=== PATIENT | female | born 1985 | race American Indian/Alaskan Native ===

== ENCOUNTER 2016-05-12 19:52 | Emergency (ER) | payer SELFPAY ==
[2016-05-12] MEDS ORDERED: TYLENOL PO ONE (21:24)
--- NOTE | 2016-05-12 21:44 | Emergency Department Report ---
HPI - General Chief Complaint: Extremity Problem,Nontraumatic Time Seen by Provider: 05/12/16 21:24 - HPI HPI: Patient is a 31-year-old female who presents to ED complaining of left hip pain and chronic 1 week. Patient states pain began a week ago and got worse yesterday. Patient states pain is sharp and sometimes radiating down her thigh. Patient states pain is 6/10 intensity. Patient states she took ibuprofen at 6:00 today. Patient denies trauma or fall to the hip. Patient and made small nausea past 2 weeks. Patient states last menstrual period was Patient denies fever/chills/abdominal pain/pelvic pain/dysuria/vaginal bleeding/ vaginal discharge. ED Past Medical Hx - Past Medical History Previous Medical History?: Yes Additional medical history: Ulcers - Surgical History Past Surgical History?: Yes Additional Surgical History: Left hand - Social History Smoking Status: Light Tobacco Smoker Substance Use Type: Alcohol - Medications Home Medications: Home Medications Medication Instructions Recorded Confirmed Last Taken Type Acetaminophen [Acetaminophen TAB] 500 mg PO Q6HR #30 tablet 05/12/16 Unknown Rx Pnv Cmb#21/Iron/Folic Acid 1 each PO DAILY #30 tablet 05/12/16 Unknown Rx [ Complete Caplet] ED Review of Systems ROS: Stated complaint: LT LEG PAIN Other details as noted in HPI Constitutional: denies: chills, fever Eyes: denies: eye pain, eye discharge, vision change ENT: denies: ear pain, throat pain Respiratory: denies: cough, shortness of breath, SOB with exertion, wheezing Cardiovascular: denies: chest pain, palpitations Endocrine: no symptoms reported Gastrointestinal: nausea. denies: abdominal pain, vomiting, diarrhea Genitourinary: denies: urgency, dysuria, discharge Musculoskeletal: arthralgia. denies: back pain, joint swelling Skin: denies: rash, lesions Neurological: denies: headache, weakness, numbness, paresthesias, confusion, abnormal gait Psychiatric: denies: anxiety, depression Hematological/Lymphatic: denies: easy bleeding, easy bruising Physical Exam - Physical Exam Vital Signs: Vital Signs 05/12/16 20:01 Temperature 99.1 F Pulse Rate 81 Respiratory 18 Rate Blood Pressure 115/74 O2 Sat by Pulse 100 Oximetry General: Patient is alert and oriented 3. No acute distress. Vital signs are stable Physical Exam: GENERAL: Alert and oriented x3, no apparent distress, Normal Gait, atraumatic. HEAD: Head is normocephalic and a-traumatic. EYES: Extra ocular muscles are intact. Pupils are equal, round, and reactive to light and accommodation. MOUTH:Mouth is well hydrated and without lesions. Tonsils nonerythematous or swollen, Uvula midline, Tongue not elevated. Mucous membranes are moist. Posterior pharynx clear, no exudate or lesions. Patent airways. NECK: Supple. Non edematous, No carotid bruits. No lymphadenopathy or thyromegaly. LUNGS: Symetrical with respiration, No wheezing, no rales or crackles, CTAB. HEART: S1, S2 present, regular rate and rhythm without murmur, no rubs, no gallops. ABDOMEN: No organomegaly was noted,Positive bowel sounds, soft, and non- distended. . Nontender to palpation on all Quadrants, NO CVA tenderness. EXTREMITIES/MUSCULOSKELETAL: No cyanosis, clubbing, rash, lesions or edema. Full ROM bilaterally. UE/LE Pulses 2+ bilaterally. LE and UE 5+ strength bilaterally. SLR positive on left leg . NEUROLOGIC: No focal Deficit, Cranial nerves II through XII are grossly intact. No loss of sensation, No facial droop, Negative rhomberg. PSYCHIATRIC: Mood is congruent with affect, denies suicidal or homicidal ideations. SKIN: Warm and dry, No lesions, No ulceration or induration present. ED Course Vital Signs 05/12/16 20:01 Temperature 99.1 F Pulse Rate 81 Respiratory 18 Rate Blood Pressure 115/74 O2 Sat by Pulse 100 Oximetry ED Medical Decision Making - Medical Decision Making Patient presents with left lumbar radiculopathy. Incidental positive test. Beta Quant Levels drawn: Discussed the patient and apply heat pad to the hip and take Tylenol every 6 hours for the pain. Discussed positive test with patient discussed not taken ibuprofen for pain. Discussed taking only Tylenol prevents S prescribed. daily vitamins as prescribed. Discussed follow-up with Dr. Doyle of [facility] FINANCIAL REPORTING SPECIALIST she states this is her OB doctor. Discussed follow-up with her neurologist for radiculopathic pain Critical care attestation.: If time is entered above; I have spent that time in minutes in the direct care of this critically ill patient, excluding procedure time. ED Disposition Clinical Impression: Lumbar pain with radiation down left leg, Incidental Disposition: DISCHARGED TO HOME OR SELFCARE Is pt being admited?: No Does the pt Need Aspirin: No Condition: Stable Instructions: Arthralgia (ED), Lumbar Radiculopathy (ED), (ED) Prescriptions: Acetaminophen [Acetaminophen TAB] 500 mg PO Q6HR #30 tablet Pnv Cmb#21/Iron/Folic Acid [ Complete Caplet] 1 each PO DAILY #30 tablet Referrals: FABIAN SANTAMARIA MD [Staff Physician] - 3-5 Days FRANCIA CRUZ MD [Staff Physician] - 3-5 Days JASKARAN RAJAN MD [Staff Physician] - 3-5 Days IMNA TORO MD [Staff Physician] - 3-5 Days REDD DOYLE MD [Primary Care Provider] - 3-5 Days Forms: Work/School Release Form(ED) Time of Disposition: 21:59
[2016-05-12 22:19] VITALS: BP 122/80
== END 2016-05-12 22:20 | disposition home or self-care (01) ==
LOC: ED 19:52
DX: M54.5 Low back pain (principal); F17.200 Nicotine dependence, unspecified, uncomplicated; Z33.1 Pregnant state, incidental
CPT/HCPCS: 36415; 81025; 84702; 99283

== ENCOUNTER 2016-08-10 03:00 | Emergency (ER) | payer MEDICAID ==
[2016-08-10] MEDS ORDERED: ZOFRAN ONE (03:16)
[2016-08-10] MEDS ORDERED: ZOFRAN IV ONE (03:25)
[2016-08-10 03:36] VITALS: BP 124/67
[2016-08-10 03:42] LABS: Basophils % (Auto) 0.3 % (0.0-1.8); Hematocrit 33.8 % (30.3-42.9); Hemoglobin 11.5 gm/dl (10.1-14.3); Mean Corpuscular HGB Conc 34 % (30-34); Mean Corpuscular Hemoglobin 32 pg (28-32); Mean Corpuscular Volume 95 fl (79-97); Platelet Count 204 K/mm3 (140-440); Red Blood Count 3.57 M/mm3 (3.65-5.03); Red Cell Distribution Width 14.5 % (13.2-15.2)
[2016-08-10 03:59] LABS: Anion Gap 21 mmol/L; Blood Urea Nitrogen 7 mg/dL (7-17); Carbon Dioxide 19 mmol/L (22-30); Chloride 102.8 mmol/L (98-107); Glucose 106 mg/dL (65-100); Potassium 3.5 mmol/L (3.6-5.0); Sodium 139 mmol/L (137-145)
[2016-08-10 04:33] LABS: Bilirubin,Urine NEG (Negative); Blood,Urine NEG (Negative); Ketones,Urine 80 mg/dL (Negative); Leukocyte Esterase,Urine TR (Negative); Mucus,Urine 3+ /HPF; Nitrite,Urine NEG (Negative); Urobilinogen,Urine < 2.0 mg/dL (<2.0)
[2016-08-10] MEDS ORDERED: TYLENOL PO ONE (05:09)
--- NOTE | 2016-08-12 01:11 | ED Elopement Review ---
ED Pt Elopement review - Results review Lab results: Laboratory Tests 08/10/16 08/10/16 08/10/16 03:20 03:20 03:20 WBC 16.0 H RBC 3.57 L Hgb 11.5 Hct 33.8 MCV 95 MCH 32 MCHC 34 RDW 14.5 Plt Count 204 Lymph % (Auto) 8.0 L [place] % (Auto) 5.1 Eos % (Auto) 0.0 Baso % (Auto) 0.3 Lymph # 1.3 [place] # 0.8 Eos # 0.0 Baso # 0.0 Seg Neutrophils % 86.6 H Seg Neutrophils # 13.9 H Sodium 139 Potassium 3.5 L Chloride 102.8 Carbon Dioxide 19 L Anion Gap 21 BUN 7 Creatinine 0.4 L Estimated GFR > 60 BUN/Creatinine Ratio 17.50 Glucose 106 H Calcium 9.0 HCG, Quant 8036 H Urine Color Urine Turbidity Urine pH Ur Specific [place] Urine Protein Urine Glucose (UA) Urine Ketones Urine Blood Urine Nitrite Urine Bilirubin Urine Urobilinogen Ur Leukocyte Esterase Urine WBC (Auto) Urine RBC (Auto) U Epithel Cells (Auto) Urine Mucus 08/10/16 03:48 WBC RBC Hgb Hct MCV MCH MCHC RDW Plt Count Lymph % (Auto) [place] % (Auto) Eos % (Auto) Baso % (Auto) Lymph # [place] # Eos # Baso # Seg Neutrophils % Seg Neutrophils # Sodium Potassium Chloride Carbon Dioxide Anion Gap BUN Creatinine Estimated GFR BUN/Creatinine Ratio Glucose Calcium HCG, Quant Urine Color Yellow Urine Turbidity Slightly-cloudy Urine pH 6.0 Ur Specific [place] 1.025 Urine Protein 30 mg/dl Urine Glucose (UA) 50 Urine Ketones 80 Urine Blood Neg Urine Nitrite Neg Urine Bilirubin Neg Urine Urobilinogen < 2.0 Ur Leukocyte Esterase Tr Urine WBC (Auto) 28.0 H Urine RBC (Auto) 5.0 U Epithel Cells (Auto) 13.0 Urine Mucus 3+ Pt has known - Call Back decision Pt Call Back Decision: Call pt to return to ED MICHELINE (dehydration, possible uti, needs eval, may also f/u with pmd or return to ed if sx continue)
== END 2016-08-10 03:30 | disposition left against medical advice (07) ==
LOC: ED 03:00
DX: O21.9 Vomiting of pregnancy, unspecified (principal); R11.0 Nausea; R19.7 Diarrhea, unspecified; Z91.040 Latex allergy status; Z88.1 Allergy status to other antibiotic agents; Z3A.18 18 weeks gestation of pregnancy; Z53.21 Procedure and treatment not carried out due to patient leaving prior to being seen by health care provider
CPT/HCPCS: 36415; 80048; 81001; 84702; 85025; J2405

== ENCOUNTER 2016-11-14 17:37 | Inpatient (IN) | payer MEDICAID ==
[2016-11-14] MEDS ORDERED: LACTATED RINGERS 500 ML IV ONE (17:57)
[2016-11-14 18:47] LABS: Urine Drugs of Abuse Note Disclamer
[2016-11-14 19:16] LABS: Bacteria,Urine 1+ /HPF (Negative); Bilirubin,Urine NEG (Negative); Blood,Urine NEG (Negative); Ketones,Urine 80 mg/dL (Negative); Leukocyte Esterase,Urine NEG (Negative); Mucus,Urine 2+ /HPF; Nitrite,Urine NEG (Negative)
[2016-11-14 20:41] LABS: Basophils % (Auto) 0.5 % (0.0-1.8); Eosinophils % (Auto) 0.2 % (0.0-4.3); Hematocrit 32.7 % (30.3-42.9); Hemoglobin 10.8 gm/dl (10.1-14.3); Mean Corpuscular HGB Conc 33 % (30-34); Mean Corpuscular Hemoglobin 32 pg (28-32); Mean Corpuscular Volume 96 fl (79-97); Platelet Count 202 K/mm3 (140-440); Red Blood Count 3.41 M/mm3 (3.65-5.03); Red Cell Distribution Width 14.4 % (13.2-15.2); White Blood Count 10.9 K/mm3 (4.5-11.0)
[2016-11-14 20:51] LABS: Alanine Aminotransferase 10 units/L (7-56); Albumin 3.6 g/dL (3.9-5); Albumin/Globulin Ratio 1.2 %; Alkaline Phosphatase 95 units/L (35-129); Anion Gap 20 mmol/L; BUN/Creatinine Ratio 33.33; Blood Urea Nitrogen 10 mg/dL (7-17); Calcium 8.8 mg/dL (8.4-10.2); Carbon Dioxide 20 mmol/L (22-30); Chloride 101.6 mmol/L (98-107); Glucose 66 mg/dL (65-100); Potassium 3.7 mmol/L (3.6-5.0); Sodium 138 mmol/L (137-145); Total Protein 6.7 g/dL (6.3-8.2)
[2016-11-14] MEDS ORDERED: LACTATED RINGERS 1,000 ML IV SCH (21:00)
[2016-11-14] MEDS ORDERED: ZOFRAN IV PRN (22:20)
[2016-11-14] MEDS ORDERED: MILK OF MAGNESIA PO PRN (22:20)
[2016-11-14] MEDS ORDERED: ALUM-MAG HYDROX-SIMETH 200-200-20MG/5ML PO PRN (22:20)
[2016-11-14] MEDS ORDERED: MYLICON PO PRN (22:20)
[2016-11-14] MEDS ORDERED: TYLENOL PO PRN (22:20)
[2016-11-14] MEDS ORDERED: COLACE PO PRN (22:20)
--- NOTE | 2016-11-14 22:36 | History and Physical Report ---
History of Present Illness Date of examination: 11/14/16 Date of admission: 11/14/16 20:32 Chief complaint: I don't want to eat History of present illness: Pt presents to triage c/o not eating for several days due to feeling depressed. Pt states she had a previous episode as a teen that required admission to psych facility and medications. No medications this . No previous episodes this . She states she desires to eat but does not feel that she can. She denies any thought to hurting herself or anyone else. has been complicated by marijuana use for which multiple uds have been positive including one on admission. Pt also has +quad screen for Trisomy 18 but declined any further testing. Anatomy scan was only significant for EIF. She has seen [facility] for evaluations. Pt denies any nausea of vomiting or abdominal pain as per report from triage nurse EDC Calculations LMP: 01/09/2017 EDC Confirmation: 01/09/2017 Gestational Age: 8 5/7 weeks Past History : 6 # 1 Delivery date: 03/13/2004 Weeks Gestation: 40 Delivery type: Anesthesia type: none Delivery location: [facility] Sex: Male weight: 6-8 Name: Gisell Comments: at 6 week # 2 Delivery date: 04/12/2005 Weeks Gestation: ? labor: no Delivery type: Hours of labor: 7 Anesthesia type: epidural Delivery location: [facility] Infant Sex: Male weight: 7-8 Name: Payal # 3 Delivery date: 05/16/2008 Weeks Gestation: 39 labor: yes Delivery type: Hours of labor: 5 Anesthesia type: epidural Delivery location: [facility] Sex: Female weight: 8-6 Name: Shabbei # 4 Delivery date: 2010 Delivery type: EAB # 5 Delivery date: 01/27/2013 Weeks Gestation: 41 labor: no Delivery type: Hours of labor: 12 Anesthesia type: epidural Delivery location: [facility] Sex: Male weight: 8-15 Name: Kirk Comments: Induction Past Medical History: Negative Past Medical History Past Surgical History: D&C: (2010) Left hand Family History Summary: Other family member - Has No Family History of Ovarvian Cancer - Entered On: Other family member - Has No Family History of Colon Cancer - Entered On: 2016 Other family member - Has Family History of Hypertension - Entered On: 06/04/2016 Other family member - Has Family History of Diabetes - Entered On: 06/04/2016 Other family member - Has Family History Breast Cancer - Entered On: 06/04/2016 Social History: Patient is single unemployed Risk Factors: Smoked Tobacco Use: Current every day smoker Cigarettes: Yes -- 1/2 pack(s) per day, Year started: 2005 Counseled to quit/cut down: yes Drug use: yes Substance: marijuana Comments: daily HIV high-risk behavior: low risk Alcohol use: yes Drinks per day: social Past Medical History 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 of genital herpes: no Partner hx. of genital herpes: no Genetic History Congenital Heart Defect: Mom: no Dad: no Marko Disease: Mom: no Dad: no Thalassemia Mom: no Dad: no Neural Tube Defect Mom: no Dad: no Down's Syndrome Mom: no Dad: no Taran-Sachs Mom: no Dad: no Sickle Cell Disease/Trait Mom: no Dad: no Hemophilia Mom: no Dad: no Muscular Dystrophy Mom: no Dad: no Cystic Fibrosis Mom: no Dad: no Julieta Chorea Mom: no Dad: no Mental Retardation Mom: no Dad: no Fragile X Mom: no Dad: no Other Genetic/Chromosomal Disorder Mom: no Dad: no Child w/other defect Mom: no Dad: no Enviromental Exposures Xray Exposure: no Medication, drug, or alcohol use since LMP: no Chemical/Other Exposure: no Exposure to Cat Liter: no Hx of Parvovirus (Fifth Disease): no Active Medications (reviewed today): None Current Allergies: AMOXICILLIN (AMOXICILLIN TABS) (Critical) Past History Past Medical History: no pertinent history Past Surgical History: D&C, other (hand) 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 (see hpi) Social history: single - Obstetrical History Expected Date of Delivery: 01/09/17 Actual Gestation: 32 Week(s) 1 Day(s) : 6 Para: 4 Induced : 1 Number of Living Children: 4 Medications and Allergies Allergies Allergy/AdvReac Type Severity Reaction Status Date / Time amoxicillin Allergy Hives Verified 05/12/16 20:01 latex Allergy Hives Verified 05/12/16 20:01 Home Medications Medication Instructions Recorded Confirmed Last Taken Type Acetaminophen [Acetaminophen TAB] 500 mg PO Q6HR #30 tablet 05/12/16 Unknown Rx Pnv Cmb#21/Iron/Folic Acid 1 each PO DAILY #30 tablet 05/12/16 Unknown Rx [ Complete Caplet] Active Meds: Active Medications Acetaminophen (Tylenol) 650 mg PO Q4H PRN PRN Reason: Pain MILD(1-3)/Fever >100.5/DUMAS Al Hydrox/Mg Hydrox/Simethicone (Alum-Mag Hydrox-Simeth 591-922-35bl/5ml) 30 ml PO Q6H PRN PRN Reason: Indigestion Docusate Sodium (Colace) 100 mg PO Q12H PRN PRN Reason: Constipation Lactated Ringer's (Lactated Ringers) 1,000 mls @ 125 mls/hr IV DIRECT DEANA Lactated Ringer's (Lactated Ringers) 1,000 mls @ 125 mls/hr IV DIRECT DEANA Magnesium Hydroxide (Milk Of Magnesia) 30 ml PO QHS PRN PRN Reason: Laxative Effect Multivitamins/Iron/Calcium ( Vitamin) 1 each PO QDAY DEANA Ondansetron HCl (Zofran) 4 mg IV Q6H PRN PRN Reason: Nausea And Vomiting Simethicone (Mylicon) 80 mg PO Q6H PRN PRN Reason: Gas pain Zolpidem Tartrate (Ambien) 10 mg PO ONCE PRN PRN Reason: Sleep Review of Systems All systems: negative - Vital Signs Vital signs: Vital Signs Pulse BP 73 113/73 11/14/16 18:40 11/14/16 18:40 Temp Pulse Resp BP Pulse Ox 98.6 F 70 20 100/63 99 11/14/16 18:43 11/14/16 22:12 11/14/16 18:43 11/14/16 22:12 11/14/16 20:49 - Physical Exam Lungs: Positive: Normal air movement Abdomen: Positive: normal appearance, soft. Negative: distention, tenderness, guarding Genitourinary (Female): Positive: other (deferred) Extremities: Positive: normal. Negative: tenderness, edema Deep Tendon Reflex Grade: Normal +2 - Obstetrical FHR: auscultation normal, category 1 Results Result Diagrams: 11/14/16 20:30 11/14/16 20:30 Abnormal lab results 11/14/16 11/14/16 Range/Units 20:30 20:30 RBC 3.41 L (3.65-5.03) M/mm3 [place] % (Auto) 8.5 H (0.0-7.3) % [place] # 0.9 H (0.0-0.8) K/mm3 Seg Neutrophils % 71.6 H (40.0-70.0) % Seg Neutrophils # 7.8 H (1.8-7.7) K/mm3 Carbon Dioxide 20 L (22-30) mmol/L Creatinine 0.3 L (0.7-1.2) mg/dL Albumin 3.6 L (3.9-5) g/dL All other labs normal. Assessment and Plan - Patient Problems (1) 32 weeks gestation of Current Visit: Yes Status: Acute (2) Depression affecting Current Visit: Yes Status: Acute Plan to address problem: -admit for obs and IV hydrations as pt has not eaten for several days -psych consult ordered (3) Abnormal test Current Visit: Yes Status: Acute Plan to address problem: +trisomy 18- no definitive testing or futher f/u as pt declined. Seen by mfm and counseled. Pt anatomy scan was normal with the exception of EIF. (4) Marijuana abuse Current Visit: Yes Status: Acute
[2016-11-14] MEDS: AMBIEN PO PRN (23:14)
[2016-11-15] MEDS: LACTATED RINGERS 1,000 ML IV SCH ×2 (04:31→22:05)
[2016-11-15] MEDS ORDERED: DULCOLAX PR PRN (05:57)
--- NOTE | 2016-11-15 05:57 | Event Note ---
Date: 11/15/16 Provider at bedside c/o having constipation and heart burn. Will give ducolax suppository as well and IV pepcid at this time.
[2016-11-15] MEDS ORDERED: PEPCID IV SCH (07:00)
--- NOTE | 2016-11-15 08:17 | Admit Criteria Form ---
Admission Criteria Documentation: OBSTETRIC AND GYNECOLOGIC DISEASE GRG Clinical Indications for Admission to Inpatient Care (Place 'X' for any and all applicable criteria): Hospital admission is needed for appropriate care of the patient because of 1 or more of the following (1)(2)(3): [ ]I. Hemodynamic instability, as indicated by 1 or more of the following (1)( 2)(3)(4)(5): [ ]a) Vital signs or other findings not as expected for chronic patient condition or baseline [ ]b) Instability indicated by 1 or more of the following: [ ]i) Hypotension [ ]ii) Symptomatic tachycardia unresponsive to treatment (eg, analgesia, fluids, sedation as indicated) [ ]iii) Inadequate perfusion indicated by 1 or more of the following: [ ]A. Lactic acidosis (greater than 2 mmol/ L) [ ]B. New abnormal capillary refill ( greater than 3 seconds) [ ]C. Reduced urine output [ ]D. New altered mental status [ ]iv) Orthostatic vital sign changes unresponsive to treatment (eg, fluids) [ ]v) Multiple IV fluid boluses required to maintain adequate blood pressure or perfusion [ ]vi) IV inotropic or vasopressor medication required to maintain adequate blood pressure or perfusion [ ]II. Obstetric infection requiring hospitalization indicated by 1 or more of the following(13)(14): [ ]a) Chorioamnionitis [ ]b) Endometritis (except mild endometritis) [ ]c) Pelvic abscess [ ]d) Peritonitis [ ]e) Septic pelvic thrombophlebitis [ ]III. Amniotic fluid or pulmonary embolism(4)(5)(6) [ ]IV. Suspected peritonitis or ectopic requiring monitoring beyond scope of 24 hours or observation care(7)(8) [ ]V. compromise requiring hospitalization indicated by ALL of the following(9)(10): [ ]a) compromise indicated by 1 or more of the following(11): [ ]i) Abnormal heart rate monitoring [ ]ii) Abnormal contraction stress test [ ]iii) Abnormal biophysical profile [ ]iv) Abnormal Doppler flow in vessels (ie, Doppler velocimetry) (12) [ ]b) Persistence of compromise indicators during evaluation and observation monitoring [ ]. Ovarian hyperstimulation syndrome requiring hospitalization[A] indicated by ALL of the following(15): [ ]a) Recent ovarian stimulation with gonadotropins, or evidence on ultrasound of spontaneous emergence of large number of ovarian follicles [ ]b) Evidence of severe ovarian hyperstimulation syndrome indicated by 1 or more of the following: [ ]i) Abdominal pain unresponsive to oral therapy [ ]ii) Acute respiratory distress syndrome [ ]iii) Electrolyte imbalance ( eg, hyponatremia, hyperkalemia) [ ]iv) Elevated liver enzymes [ ]v) Evidence of thromboembolism [ ]vi) Hemoconcentration (hematocrit greater than 45 % (0.45)) [ ]vii) Inability to maintain oral intake adequate to prevent hemoconcentration [ ]viii) Marked hypotension from baseline (eg, SBP 20 mmHg below patients usual pressure) [ ]ix) Oliguria or anuria [ ]x) Ovarian torsion [ ]xi) Pleural or pericardial effusion on x-ray or echocardiogram [ ]xii) Rapid increase in serum creatinine to greater than 1.2 mg/dL (106 micromoles/L) or creatinine clearance less than 50 mL/min/1.73m2 (0.84 mL/ sec/1.73m2) [ ]xiii) Ruptured ovarian cyst with hemorrhage [ ]xiv) Severe abdominal pain or peritoneal signs [ ]xv) Tense ascites that cannot be managed with paracentesis in outpatient setting [ ]VII.Pelvic infection requiring hospitalization indicated by 1 or more of the following (16): [ ]a) Outpatient treatment has failed or is not appropriate (eg, inpatient monitoring required) [ ]b) Pelvic abscess [ ]c) Surgical emergency cannot be excluded (eg, rigid abdomen) [ ]d) Vomiting precluding outpatient and observation care management VIII. loss complications requiring inpatient medical treatment indicated by 1 or more of the following (4)(7)(9): [ ]a) Fever [ ]b) Peritonitis [ ]c) Sepsis [ ]d) Severe abdominal pain [ ]IX. or patient requiring monitoring for severe heart failure, pulmonary disease, or other comorbid condition (eg, peripartum cardiomyopathy) (4)(17) [ ]X. patient with rupture of membranes requiring hospitalization indicated by ANY ONE of the following: [ ]a) Chorioamnionitis, cloudy amniotic fluid, or other evidence of infection [ ]b) compromise or other need for monitoring (11) [ ]c) Gestation longer than 23 weeks and ANY ONE of the following: [ ]i) Abnormal (noncephalic) presentation [ ]ii) Inadequate home environment (eg, home too far from hospital, unable to rapidly return to hospital) [ ]d) Temperature greater than 100.4 degrees F (38 degrees C)( oral) [ ]e) Threatened labor requiring monitoring beyond scope (eg, over 24 hours) of observation Care [ ] XI. complications, including severe lacerations, infections, or retained placenta (19) [ ] XII.Uterine bleeding with high-risk features indicated by ANY ONE of the following (4): [ ]a) Active major hemorrhage (eg, hemorrhage) [ ]b) Coagulopathy with active bleeding [ ]c) Gestational trophoblastic disease (eg, molar ) (20 ) [ ]d) (longer than 23 weeks) and ANY ONE of the following: [ ]i) Pain [ ]ii) Placental abruption, known or suspected [ ]iii) Placenta accrete, known or suspected(21) [ ]iv) Placenta previa, known or suspected [ ]v) Vasa previa [ ]e) Severe anemia [X ]XIII. Obstetric or Gynecologic Disease, condition or symptom for which ANY ONE of the following: [ X]a) Emergency and observation care have failed or are not considered appropriate ( Also use General Criteria: Observation Care Criteria as appropriate) [ ]b) Presence of a General Admission Criteria or Pediatric General Admission Criteria The original [facility] [employer] content created by [facility] has been revised. The portions of the content which have been revised are identified through the use of italic text or in bold, and [facility] has neither reviewed nor approved the modified material.All other unmodified content is copyright [facility]. Please see references footnoted in the original [facility] edition 2016 Admission Criteria Met: Yes
[2016-11-15] MEDS ORDERED: PRENATAL VITAMIN PO SCH (10:00)
[2016-11-15] MEDS: PEPCID PO SCH ×2 (12:30→23:25)
--- NOTE | 2016-11-15 16:30 | Progress Note ---
Assessment and Plan - Patient Problems (1) 32 weeks gestation of Current Visit: Yes Status: Acute (2) Abnormal test Current Visit: Yes Status: Acute Plan to address problem: BPP with RAMON Instructed pt to drink for now, will get a dietary consult Inform pt she is not able to leave the unit. (3) Depression affecting Current Visit: Yes Status: Acute Plan to address problem: Psych consult pending (4) Marijuana abuse Current Visit: Yes Status: Acute Subjective - Subjective Date of service: 11/15/16 Interval history: waiting for psych evaluation Objective - Vital Signs Vital Signs: Vital Signs - 12hr 11/15/16 11/15/16 07:43 11:47 Temperature 97.9 F 98.1 F Pulse Rate 77 66 Pulse Rate [ 77 66 From Monitor] Respiratory 18 18 Rate Blood Pressure 106/55 111/67 Blood Pressure 106/55 114/71 [Right Arm] - Exam FHR: category 2 - Labs Labs: Abnormal Labs 11/14/16 11/14/16 20:30 20:30 RBC 3.41 L [place] % (Auto) 8.5 H [place] # 0.9 H Seg Neutrophils % 71.6 H Seg Neutrophils # 7.8 H Carbon Dioxide 20 L Creatinine 0.3 L Albumin 3.6 L Laboratory Results - last 24 hr 11/14/16 11/14/16 11/14/16 18:00 18:00 20:30 WBC 10.9 RBC 3.41 L Hgb 10.8 Hct 32.7 MCV 96 MCH 32 MCHC 33 RDW 14.4 Plt Count 202 Lymph % (Auto) 19.2 [place] % (Auto) 8.5 H Eos % (Auto) 0.2 Baso % (Auto) 0.5 Lymph # 2.1 [place] # 0.9 H Eos # 0.0 Baso # 0.1 Seg Neutrophils % 71.6 H Seg Neutrophils # 7.8 H Sodium Potassium Chloride Carbon Dioxide Anion Gap BUN Creatinine Estimated GFR BUN/Creatinine Ratio Glucose Calcium Total Bilirubin AST ALT Alkaline Phosphatase Total Protein Albumin Albumin/Globulin Ratio Urine Color Yellow Urine Turbidity Clear Urine pH 6.0 Ur Specific [place] 1.021 Urine Protein 30 mg/dl Urine Glucose (UA) Neg Urine Ketones 80 Urine Blood Neg Urine Nitrite Neg Urine Bilirubin Neg Urine Urobilinogen 2.0 Ur Leukocyte Esterase Neg Urine WBC (Auto) 4.0 Urine RBC (Auto) 14.0 U Epithel Cells (Auto) 9.0 Urine Bacteria (Auto) 1+ Urine Mucus 2+ Urine Opiates Screen Presumptive negative Urine Methadone Screen Presumptive negative Ur Barbiturates Screen Presumptive negative Ur Phencyclidine Scrn Presumptive negative Ur Amphetamines Screen Presumptive negative U Benzodiazepines Scrn Presumptive negative Urine Cocaine Screen Presumptive negative U Marijuana (THC) Screen Presumptive positive Drugs of Abuse Note Disclamer 11/14/16 20:30 WBC RBC Hgb Hct MCV MCH MCHC RDW Plt Count Lymph % (Auto) [place] % (Auto) Eos % (Auto) Baso % (Auto) Lymph # [place] # Eos # Baso # Seg Neutrophils % Seg Neutrophils # Sodium 138 Potassium 3.7 Chloride 101.6 Carbon Dioxide 20 L Anion Gap 20 BUN 10 Creatinine 0.3 L Estimated GFR > 60 BUN/Creatinine Ratio 33.33 Glucose 66 Calcium 8.8 Total Bilirubin 0.60 AST 19 ALT 10 Alkaline Phosphatase 95 Total Protein 6.7 Albumin 3.6 L Albumin/Globulin Ratio 1.2 Urine Color Urine Turbidity Urine pH Ur Specific [place] Urine Protein Urine Glucose (UA) Urine Ketones Urine Blood Urine Nitrite Urine Bilirubin Urine Urobilinogen Ur Leukocyte Esterase Urine WBC (Auto) Urine RBC (Auto) U Epithel Cells (Auto) Urine Bacteria (Auto) Urine Mucus Urine Opiates Screen Urine Methadone Screen Ur Barbiturates Screen Ur Phencyclidine Scrn Ur Amphetamines Screen U Benzodiazepines Scrn Urine Cocaine Screen U Marijuana (THC) Screen Drugs of Abuse Note
[2016-11-15] MEDS ORDERED: ZOFRAN IV ONE (19:23)
[2016-11-15] MEDS: AMBIEN PO PRN (23:25)
[2016-11-16] MEDS: PEPCID PO SCH (10:35)
--- NOTE | 2016-11-16 12:25 | Ultrasound Report ---
BIOPHYSICAL PROFILE: 11/15/16 12:00:00 CLINICAL: Well Being FINDINGS: The biophysical profile was scored as followin - breathing movements 2 - movements 2 - posture and tone 2 - Qualitative amniotic fluid volume 8 - TOTAL SCORE OF POSSIBLE 8 Heart Rate (bpm) = 144 IMPRESSION: Normal study
--- NOTE | 2016-11-16 12:27 | Discharge Summary ---
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-Jeddo Notified:: tierney Phone number called:: [phone] Was contact made?: Yes If yes, spoke with:: linda Time called:: 07:25 Comment:: yes 11/15/16 16:30 Consult to Dietitian/Nutrition [CONS] Routine Physician Instructions: Reason For Exam: Reason for Consult: Pt needs oral supplement Primary care physician: ALEAH HDZ Hospitalization Reason for admission: unable to eat, probably anxiety dysphagia Condition: Good Pertinent studies: BPP 8/ Procedures: MH consult, deemed to be stable for discharge with outpt f/u Hospital course: 31 yo [id number] at 32 weeks who presented to triage c/o not eating for several days due to feeling depressed. Pt states she had a previous episode as a teen that required admission to psych facility and medications. No medications this or since she was 16. No previous episodes this . She states she desires to eat but does not feel that she can. She denies any thought to hurting herself or anyone else. has been complicated by marijuana use for which multiple uds have been positive including one on admission. Pt also has +quad screen for Trisomy 18 but declined any further testing. Anatomy scan was only significant for EIF. She has seen [facility] for evaluations. Pt denies any nausea of vomiting or abdominal pain as per report from triage nurse Since admission she had BPP 8/8 and has gradually come to tolerate a regular diet. She says this was not a psych issue but that she was alarmed that she was unable to eat. I mentioned that trouble swallowing could accompany some degree of anxiety and she accepted this explanation. She denies suicidal or homicidal ideation and desires to be discharged and does not want any medication. She knows to f/u at next scheduled visit in about 2 weeks and to call the office if any problems. Disposition: DC- TO HOME OR SELFCARE Time spent for discharge: 15 min - Discharge Diagnoses (1) Dysphagia Status: Resolved Qualifiers: Dysphagia type: D (2) 32 weeks gestation of Status: Acute (3) Abnormal test Status: Acute Comment: EIF on testing (4) Depression affecting Status: Acute Comment: more likely anxiety (5) Marijuana abuse Status: Acute Core Measure Documentation - Palliative Care Palliative Care/ Comfort Measures: Not Applicable - Core Measures Any of the following diagnoses?: none Exam - Constitutional Vitals: Temp Pulse Resp BP Pulse Ox 97.8 F 66 20 113/68 99 11/16/16 08:00 11/16/16 08:15 11/16/16 08:00 11/16/16 08:15 11/14/16 20:49 Plan Follow up with: ALEAH HDZ MD [Primary Care Provider] - 7 Days Forms: [facility] Discharge Summary, Discharge Signature Page
[2016-11-16 12:45] VITALS: BP 104/73
== END 2016-11-16 13:00 | disposition home or self-care (01) | DRG 781 ==
LOC: TRG 17:37 → LD 20:32 → OBSVTOIN 11-15 12:00
PROVIDERS: ADMIT Obstetrics & Gynecology; ATTEND Obstetrics & Gynecology
DX: O99.343 Other mental disorders complicating pregnancy, third trimester (principal); F32.9 Major depressive disorder, single episode, unspecified; R13.10 Dysphagia, unspecified; O99.353 Diseases of the nervous system complicating pregnancy, third trimester; O99.323 Drug use complicating pregnancy, third trimester; F12.10 Cannabis abuse, uncomplicated; O28.9 Unspecified abnormal findings on antenatal screening of mother; O99.333 Smoking (tobacco) complicating pregnancy, third trimester; F17.210 Nicotine dependence, cigarettes, uncomplicated; Z88.1 Allergy status to other antibiotic agents; Z3A.32 32 weeks gestation of pregnancy
CPT/HCPCS: 36415; 76819; 80053; 80307; 81001; 85025; G0378; J2405; J7120

== ENCOUNTER 2016-11-21 04:53 | Inpatient (IN) | payer MEDICAID ==
--- NOTE | 2016-11-21 03:45 | Emergency Department Report ---
ED Upper Extremity Inj HPI - General Chief Complaint: Extremity Injury, Upper Stated Complaint: LEFT SHOULDER DISLOCATED Time Seen by Provider: 11/21/16 03:15 Source: patient Mode of arrival: Ambulatory Limitations: No Limitations - History of Present Illness Initial Comments: 31-year-old female presents to the emergency department complaining of a possible dislocated left shoulder. Patient states that she fell in the shower and tried to catch herself with her left arm. She states the arm was pulled behind her and she felt her shoulder pop out of socket. Incident occurred just prior to arrival in the emergency department. Patient has no other complaints. Of note, patient is 32 weeks . MD Complaint: Injury to:: left, shoulder -: Sudden, During the night Other Injuries: none Handedness: right Place: home Severity scale (0 -10): 9 Improves With: none Worsens With: none Context: fall Associated Symptoms: denies other symptoms - Related Data Previous Rx's Medication Instructions Recorded Last Taken Type Acetaminophen [Acetaminophen TAB] 500 mg PO Q6HR #30 tablet 05/12/16 Unknown Rx Pnv Cmb#21/Iron/Folic Acid 1 each PO DAILY #30 tablet 05/12/16 Unknown Rx [ Complete Caplet] Allergies Allergy/AdvReac Type Severity Reaction Status Date / Time amoxicillin Allergy Hives Verified 05/12/16 20:01 latex Allergy Hives Verified 05/12/16 20:01 ED Review of Systems ROS: Stated complaint: LEFT SHOULDER DISLOCATED Other details as noted in HPI Comment: All other systems reviewed and negative Musculoskeletal: arthralgia ED Past Medical Hx - Past Medical History Previous Medical History?: Yes Hx Hypertension: No Hx Congestive Heart Failure: No Hx Diabetes: No Hx Deep Vein Thrombosis: No Hx Renal Disease: No Hx Sickle Cell Disease: No Hx Seizures: No Hx Asthma: No Hx COPD: No Hx HIV: No Additional medical history: Ulcers - Surgical History Past Surgical History?: Yes Additional Surgical History: Left hand. Left Shoulder rotator cuff repair - Family History Family history: no significant - Social History Smoking Status: Never Smoker Substance Use Type: None - Medications Home Medications: Home Medications Medication Instructions Recorded Confirmed Last Taken Type Acetaminophen [Acetaminophen TAB] 500 mg PO Q6HR #30 tablet 05/12/16 Unknown Rx Pnv Cmb#21/Iron/Folic Acid 1 each PO DAILY #30 tablet 05/12/16 Unknown Rx [ Complete Caplet] ED Physical Exam - General Limitations: No Limitations General appearance: alert, in distress (mild distress secondary to pain) - Head Head exam: Present: atraumatic, normocephalic - Eye Eye exam: Present: normal appearance, PERRL, EOMI - ENT ENT exam: Present: normal exam, normal orophraynx, mucous membranes moist - Neck Neck exam: Present: normal inspection, full ROM. Absent: tenderness - Respiratory Respiratory exam: Present: normal lung sounds bilaterally. Absent: respiratory distress - Cardiovascular Cardiovascular Exam: Present: regular rate, normal rhythm, normal heart sounds - GI/Abdominal GI/Abdominal exam: Present: soft, distended (gravid uterus), normal bowel sounds. Absent: tenderness - Extremities Exam Extremities exam: Present: other (anterior dislocation of left shoulder is noted on exam. Range of motion is limited in the left shoulder. Patient is neurovascularly intact. Remainder of extremities are unremarkable.) - Back Exam Back exam: Present: normal inspection, full ROM. Absent: tenderness - Neurological Exam Neurological exam: Present: alert, oriented X3. Absent: motor sensory deficit - Skin Skin exam: Present: warm, dry, intact ED Course Vital Signs 11/21/16 02:29 Temperature 99.1 F Pulse Rate 97 H Respiratory 20 Rate Blood Pressure 126/84 [Right] O2 Sat by Pulse 100 Oximetry - Consultations Consultation #1: 11/21/16 04:[address] Singh, MATERIAL COORDINATOR. He states that it is okay to perform sedation in the emergency department and then discharge the patient to labor and delivery for monitoring. - Moderate Sedation Indications: fracture/dislocation redu ASA Class: I Mallampati Airway Score: 2 Preparation: monitor and storage bin tender applied, pulse oximeter, capnometry used, supplemental O2 applied, suction/airway equipment at bedside, IV secured IV Propofol Dose (mgs): 120 Complications: none Patient Tolerated Procedure: well Additional Comments: Total sedation time was 7 minutes. - Orthopedic Joint Reduction Joint #1 Consent Obtained: written consent Time Out Performed: Yes Side: left Joint Reduction Location: shoulder Analgesia: moderate sedation Shoulder Technique Used (if applicable): traction/counter-traction, external rotation Post-Reduction Neuro Exam: intact Post-Reduction Vascular Exam: intact Post Reduction X-Ray Obtained: Yes Post Reduction X-Ray Results: reduced Splint Applied: Yes Patient Tolerated Procedure: well, no complications ED Medical Decision Making - Radiology Data Radiology results: image reviewed interpreted by me: Left shoulder x-ray reveals an anterior dislocation. There is no evidence of fracture. - Medical Decision Making Imaging results reviewed and discussed with the patient and family. Patient was sedated with IV propofol, category B in . Post reduction x-ray shows proper alignment of the left humeral head with no evidence of fracture. Per MATERIAL COORDINATOR request, the patient will be discharged from the emergency department to labor and delivery for monitoring. - Differential Diagnosis dislocation, fracture Critical care attestation.: If time is entered above; I have spent that time in minutes in the direct care of this critically ill patient, excluding procedure time. ED Disposition Clinical Impression: Dislocation of shoulder, left, closed Qualifiers: Encounter type: initial encounter Qualified Code(s): S43.005A - Unspecified dislocation of left shoulder joint, initial encounter Disposition: DC/TX-70 ANOTHER TYPE HLTHCARE Is pt being admited?: No Condition: Stable Instructions: Shoulder Dislocation (ED) Referrals: PRIMARY CARE, [Referring] - 3-5 Days Time of Disposition: 04:24
[~2016-11-21 04:53] MED LIST: DIPRIVAN 10 MG/ML IV ONE; MORPHINE IV ONE; MORPHINE ONE; TYLENOL ONE; TYLENOL PO ONE
--- NOTE | 2016-11-21 06:48 | History and Physical Report ---
History of Present Illness Date of examination: 11/21/16 (pt comes to L&D from the ED where she was evaluated after a fall @ home. Dislocated her left shoulder) Date of admission: 11/21/16 04:58 Chief complaint: fall in shower at home History of present illness: pt states she was taking a shower , slipped and fell on her shoulder. Stated she was in severe pain and went to the ED. DX with dislocated left shoulder. Shoulder was repositioned under sedation. Pt sent to L&D for monitoring. EDC Confirmation: 01/09/2017 Gestational Age: 8 5/7 weeks Past History : 6 # 1 Delivery date: 03/13/2004 Weeks Gestation: 40 Delivery type: Anesthesia type: none Delivery location: [facility] Sex: Male weight: 6-8 Name: Gisell Comments: at 6 week # 2 Delivery date: 04/12/2005 Weeks Gestation: ? labor: no Delivery type: Hours of labor: 7 Anesthesia type: epidural Delivery location: [facility] Sex: Male weight: 7-8 Name: Payal # 3 Delivery date: 05/16/2008 Weeks Gestation: 39 labor: yes Delivery type: Hours of labor: 5 Anesthesia type: epidural Delivery location: [facility] Sex: Female weight: 8-6 Name: Parminderei # 4 Delivery date: 2010 Delivery type: EAB # 5 Delivery date: 01/27/2013 Weeks Gestation: 41 labor: no Delivery type: Hours of labor: 12 Anesthesia type: epidural Delivery location: [facility] Sex: Male weight: 8-15 Name: Kirk Comments: Induction Past Medical History: Negative Past Medical History Past Surgical History: D&C: (2010) Left hand Family History Summary: Other family member - Has No Family History of Ovarvian Cancer - Entered On: Other family member - Has No Family History of Colon Cancer - Entered On: 2016 Other family member - Has Family History of Hypertension - Entered On: 06/04/2016 Other family member - Has Family History of Diabetes - Entered On: 06/04/2016 Other family member - Has Family History Breast Cancer - Entered On: 06/04/2016 Social History: Patient is single unemployed Risk Factors: Smoked Tobacco Use: Current every day smoker Cigarettes: Yes -- 1/2 pack(s) per day, Year started: 2005 Counseled to quit/cut down: yes Drug use: yes Substance: marijuana Comments: daily HIV high-risk behavior: low risk Alcohol use: yes Drinks per day: social Past Medical History 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 of genital herpes: no Partner hx. of genital herpes: no Genetic History Congenital Heart Defect: Mom: no Dad: no Marko Disease: Mom: no Dad: no Thalassemia Mom: no Dad: no Neural Tube Defect Mom: no Dad: no Down's Syndrome Mom: no Dad: no Taran-Sachs Mom: no Dad: no Sickle Cell Disease/Trait Mom: no Dad: no Hemophilia Mom: no Dad: no Muscular Dystrophy Mom: no Dad: no Cystic Fibrosis Mom: no Dad: no Erath Chorea Mom: no Dad: no Mental Retardation Mom: no Dad: no Fragile X Mom: no Dad: no Other Genetic/Chromosomal Disorder Mom: no Dad: no Child w/other defect Mom: no Dad: no Enviromental Exposures Xray Exposure: no Medication, drug, or alcohol use since LMP: no Chemical/Other Exposure: no Exposure to Cat Liter: no Hx of Parvovirus (Fifth Disease): no Active Medications (reviewed today): None Current Allergies: AMOXICILLIN (AMOXICILLIN TABS) (Critical) Laboratory Results Routine Urinalysis Protein: 1+ Glucose: Negative Urine HCG: positive Review of Systems General Complains of fatigue. Denies fever, chills, sweats, anorexia, weakness, malaise, weight loss and sleep disorder. Complains of vaginal discharge and pelvic pain. Denies incontinence, dysuria, hematuria, urinary frequency, amenorrhea, menorrhagia, abnormal vaginal bleeding, genital sores, decreased libido, painful periods, painful sex, urinary urgency, hot flashes, vaginal dryness, vaginal itching and vaginal odor. CV Denies chest pains, palpitations, syncope, dyspnea on exertion, orthopnea, PND and peripheral edema. Resp Denies cough, dyspnea at rest, excessive sputum, hemoptysis, wheezing and pleurisy. GI Complains of nausea, vomiting, abdominal pain and indigestion/heartburn. Denies diarrhea, constipation, change in bowel habits, melena, hematochezia , jaundice, gas/bloating, dysphagia and odynophagia. Breast Complains of breast pain. Denies left breast lump, right breast lump, nipple discharge, bloody discharge from nipple, abnormal mammogram and breast enlargement. Psych Denies depression, anxiety, irritability and mood swings. PHYSICAL EXAM HEENT: normocephalic, no lesions or deformities Neck/Thyroid: supple, thyroid normal Skin no significant abnormal lesions or rashes .Tatoo(s) are present Chest: respiratory effort normal, clear to auscultation Breasts: skin/areolae normal, no masses, no nipple discharge, no erythema/warmth /tenderness, and axillae normal. Nipple piecing present bilaterally .Tatoo(s) are present CV: regular, normal S1-S2, no murmur, no rub, no gallop Abdomen: normal bowel sounds, soft, nontender, no HSM Navel jewelry .Tatoo(s) are present Musculoskeletal: grossly normal ROM in joints, no joint tenderness or muscle weakness Neuro: no gross anomalities Extremities: no clubbing, cyanosis, or edema .Tatoo(s) are present INDEPENDENT FREIGHT AGENT Exams Vulva/Vagina: normal appearance, white discharge, lesions. No evidence of cystocele or rectocele. Cervix: No lesions; no cervical motion tenderness Uterus: enlarged uterus 8 - 10 weeks size Adnexae: no masses or tenderness Rectovaginal: exam defered Past History - Obstetrical History Expected Date of Delivery: 01/09/17 Actual Gestation: 33 Week(s) 0 Day(s) : 6 Para: 4 Hx # Term Pregnancies: 4 Induced : 1 Number of Living Children: 4 Medications and Allergies Allergies Allergy/AdvReac Type Severity Reaction Status Date / Time amoxicillin Allergy Hives Verified 05/12/16 20:01 latex Allergy Hives Verified 05/12/16 20:01 Home Medications Medication Instructions Recorded Confirmed Last Taken Type Acetaminophen [Acetaminophen TAB] 500 mg PO Q6HR #30 tablet 05/12/16 Unknown Rx Pnv Cmb#21/Iron/Folic Acid 1 each PO DAILY #30 tablet 05/12/16 Unknown Rx [ Complete Caplet] - Vital Signs Vital signs: Vital Signs Temp Pulse Resp BP Pulse Ox 99.1 F 97 H 20 126/84 100 11/21/16 02:29 11/21/16 02:29 11/21/16 02:29 11/21/16 02:29 11/21/16 02:29 Temp Pulse Resp BP Pulse Ox 98.2 F 78 12 100/71 97 11/21/16 05:03 11/21/16 05:13 11/21/16 05:03 11/21/16 05:03 11/21/16 05:13 - Physical Exam Breasts: Positive: deferred Cardiovascular: Regular rate, Normal S1, Normal S2 Lungs: Positive: Normal air movement Abdomen: Positive: normal appearance, soft, normal bowel sounds. Negative: distention, tenderness Genitourinary (Female): Positive: normal external genitalia Vulva: both: normal Vagina: Positive: normal moisture. Negative: discharge Cervix: Negative: lesion, discharge Uterus: Positive: normal size, normal contour Adnexa: both: normal Anus/Rectum: Positive: normal perianal skin, heme negative. Negative: rectal mass, hemorrhoids Extremities: Positive: edema Deep Tendon Reflex Grade: Normal +2 - Obstetrical FHR: category 1 Uterine Contraction Monitor Mode: External Uterine Contraction Pattern: Absent Uterine Tone Measurement Phase: Resting Results All other labs normal. Laboratory Data-Patient Name: CHIO CASTANEDA Test Date Result Blood Type 07/05/2016 O Rh 07/05/2016 Positive Antibody Screen Rubella 07/08/2016 Serology (RPR) 07/05/2016 HBsAg 07/05/2016 Negative Hemoglobin 10/01/2016 11.1 Hematocrit 10/01/2016 33.9 Platelets 07/05/2016 241 [id number] Chlamydia DNA GC DNA/Culture Urine Culture 07/05/2016 Final report Group B Strep cult PAP 06/04/2016 Normal, Satisfactory HIV 07/05/2016 AFP/Quad Screen 08/05/2016 Glucola Test 3hr GTT (Fasting) 1 hr 2 hr 3 hr [facility]-Patient Name:CHIO CASTANEDA Test Date Result Varicella Ab Sickle Cell 07/05/2016 Negative PPD Fibronectin Cystic Fibrosis Parvovirus TSH Free T4 Hepatitis C ALT AST Uric Acid Creatinine 24 hr Urine Protein KILEY Assessment and Plan - Patient Problems (1) 33 weeks gestation of Onset Date: ~11/21/16 Current Visit: Yes Status: Acute Plan to address problem: monitoring after a fall at home that resulted in dislocation of left shoulder shoulder was repositioned in ED w/o complication. Pt c/o leg pain SCD placed. US BPP 8/8, RAMON 14, no evidence abruption. Will continue observation and monitoring Will consult and report to .
--- NOTE | 2016-11-21 07:50 | XRay Report ---
LEFT SHOULDER, 2 VIEWS History: Pain after fall, deformity. Findings: An anterior, inferior dislocation at the left glenohumeral joint is identified. The remainder of the examination is normal. Impression: Dislocation at the left shoulder.
--- NOTE | 2016-11-21 07:51 | XRay Report ---
LEFT SHOULDER, ONE VIEW History: Dislocation, postreduction film. Findings: The anterior, inferior dislocation has been reduced since 0247 hours and is now in anatomic alignment. No obvious fracture on single view. Impression: Successful reduction of the left shoulder dislocation.
[2016-11-21 07:57] VITALS: BP 108/67
--- NOTE | 2016-11-21 08:21 | Event Note ---
Date: 11/21/16 monitoring reassuring and normal after IV sedation for replacement of dislocated shoulder. Pt can be d/c home today and f/u at next apt as scheduled.
--- NOTE | 2016-11-21 08:35 | Discharge Summary ---
Providers - Providers Date of Admission: 11/21/16 08:25 Date of discharge: 11/21/16 (pt stable with reassuring monitoring) Attending physician: THONY LAKE Primary care physician: ARIE LUND Hospitalization Condition: Good Hospital course: repositioning of left shoulder after dislocating it in the shower pt is 33 weeks Reassuring assessment Disposition: DC-01 TO HOME OR SELFCARE - Discharge Diagnoses (1) Dislocation of shoulder, left, closed Status: Acute Qualifiers: Encounter type: initial encounter Qualified Code(s): S43.005A - Unspecified dislocation of left shoulder joint, initial encounter Comment: f/u with orthopedics if necessary f/u in OB office for PNC within 7 days Core Measure Documentation - Palliative Care Palliative Care/ Comfort Measures: Not Applicable - Core Measures Any of the following diagnoses?: none - VTE Discharge Requirements Deep Vein Thrombosis/Pulmonary Embolism Present on Admission: No Has pt received <5 days of overlap therapy or INR<2.0: No Anticoagulant overlap therapy prescribed at discharge: No Contraindication No Overlap Therapy order at DC: Not Indicated - Acute UT Discharge Requirements Aspirin at discharge: No Reason for no aspirin on DC: Medical contraindication NICOLA/ARB for LVSD if EF <40%: Not Applicable Reason for no NICOLA/ARB: Medical contraindication Beta héctor at discharge: No Reason for no beta héctor on DC: Medical contraindication Statin for LDL = or >100 mg/dl on DC: Not Applicable Reason for no statin on DC: Medical contraindication - Heart Failure Discharge Requirements NICOLA/ARB for LVSD if EF <40%: Not Applicable - Stroke Discharge Requirements Statin for LDL = or >70 mg/dl on DC: Not Applicable Anticoag for atrial fib/atrial flutter: Not Applicable Antithrombotic for ischemic stroke: No Reason for no antithrombotic on DC: Not Indicated Exam - Constitutional Vitals: Temp Pulse Resp BP Pulse Ox 98.6 F 80 18 108/67 97 11/21/16 07:57 11/21/16 07:57 11/21/16 07:57 11/21/16 07:57 11/21/16 07:57 General appearance: Present: no acute distress, well-nourished - EENT Eyes: Present: PERRL ENT: hearing intact, clear oral mucosa - Neck Neck: Present: supple, normal ROM - Respiratory Respiratory effort: normal Respiratory: bilateral: CTA - Cardiovascular Heart Sounds: Present: S1 & S2. Absent: rub, click - Extremities Extremities: pulses symmetrical, No edema Peripheral Pulses: within normal limits - Abdominal General gastrointestinal: Present: soft, non-tender, non-distended, normal bowel sounds Female genitourinary: Present: deferred, normal - Rectal Rectal Exam: deferred - Integumentary Integumentary: Present: clear, warm, dry - Musculoskeletal Musculoskeletal: gait normal, strength equal bilaterally - Psychiatric Psychiatric: appropriate mood/affect, intact judgment & insight - Neurologic Neurologic: CNII-XII intact, moves all extremities Plan Activity: advance as tolerated Weight Bearing Status: Weight Bear as Tolerated Diet: regular Follow up with: PRIMARY CARE, [Referring] - 3-5 Days SUNDAR HARRINGTON CNM [Advanced Practice Nurse] - 7 Days (Obstetrical Instructions: hydration; monitor movement; call with contractions, vaginal bleeding, loss of amniotic fluid. YOU must call for a visit with in 7 days. [phone])
--- NOTE | 2016-11-21 08:56 | Ultrasound Report ---
ULTRASOUND BIOPHYSICAL PROFILE: History: well being, fall, trauma Technique: Transabdominal ultrasound with Doppler interrogation. 2 - breathing movements 2 - movements 2 - posture and tone 2 - Qualitative amniotic fluid volume 8 - TOTAL SCORE OF POSSIBLE 8 Heart Rate (bpm) 141
--- NOTE | 2016-11-21 08:56 | Ultrasound Report ---
ULTRASOUND OB LIMITED History: well being Technique: Transabdominal ultrasound with Doppler interrogation. Gestation: Single Position: Cephalic Amniotic Fluid: Normal RAMON = 14.2 cm Placenta: Anterior Placental Grade: 1 No evidence for abruption. Heart Rate: 140 BPM Cervical length: Obscured
== END 2016-11-21 09:40 | disposition home or self-care (01) | DRG 781 ==
LOC: TRG 04:53 → LD 04:54 → TRG 04:57 → LD 04:58 → OBSVTOIN 08:25
PROVIDERS: ADMIT Obstetrics & Gynecology; ATTEND Obstetrics & Gynecology
DX: O26.893 Other specified pregnancy related conditions, third trimester (principal); S43.005A Unspecified dislocation of left shoulder joint, initial encounter; W18.2XXA Fall in (into) shower or empty bathtub, initial encounter; Y93.89 Activity, other specified; Y92.002 Bathroom of unspecified non-institutional (private) residence as the place of occurrence of the external cause; Y99.8 Other external cause status; Z3A.33 33 weeks gestation of pregnancy; Z88.8 Allergy status to other drugs, medicaments and biological substances; Z91.040 Latex allergy status
CPT/HCPCS: 76815; 76819; J2270; J2704

== ENCOUNTER 2016-12-24 08:16 | Outpatient (CLI) | payer MEDICAID ==
[2016-12-24] MEDS ORDERED: LACTATED RINGERS 500 ML IV ONE (08:24)
[2016-12-24 08:28] VITALS: BP 108/71
[2016-12-24 08:38] LABS: Bacteria,Urine 1+ /HPF (Negative); Bilirubin,Urine NEG (Negative); Blood,Urine NEG (Negative); Ketones,Urine NEG (Negative); Leukocyte Esterase,Urine NEG (Negative); Nitrite,Urine NEG (Negative); Protein,Urine <15 mg/dL mg/dL (Negative); Urobilinogen,Urine < 2.0 mg/dL (<2.0)
[2016-12-24 08:39] LABS: WBC,Urine < 1.0 /HPF (0.0-6.0)
[2016-12-24] MEDS ORDERED: ZOFRAN IM ONE (08:42)
[2016-12-24] MEDS ORDERED: ZOFRAN IV ONE (09:02)
== END 2016-12-24 09:36 | disposition home or self-care (01) ==
LOC: TRG 08:16
PROVIDERS: ATTEND Obstetrics & Gynecology
DX: O47.03 False labor before 37 completed weeks of gestation, third trimester (principal); Z3A.37 37 weeks gestation of pregnancy
CPT/HCPCS: 59025; 81001; 96360; 96374; J2405; J7120

== ENCOUNTER 2016-12-30 07:39 | Observation (INO) | payer MEDICAID ==
[2016-12-30] MEDS ORDERED: ZOFRAN IV ONE (08:08)
[2016-12-30] MEDS ORDERED: LACTATED RINGERS 1,000 ML IV ONE (08:08)
[2016-12-30] MEDS ORDERED: LACTATED RINGERS 1,000 ML ONE (08:09)
[2016-12-30 08:34] LABS: Basophils % (Auto) 0.8 % (0.0-1.8); Hematocrit 33.3 % (30.3-42.9); Hemoglobin 11.2 gm/dl (10.1-14.3); Mean Corpuscular HGB Conc 34 % (30-34); Mean Corpuscular Hemoglobin 32 pg (28-32); Mean Corpuscular Volume 94 fl (79-97); Platelet Count 178 K/mm3 (140-440); Red Blood Count 3.55 M/mm3 (3.65-5.03); Red Cell Distribution Width 14.8 % (13.2-15.2); White Blood Count 11.6 K/mm3 (4.5-11.0)
[2016-12-30 08:58] LABS: Alanine Aminotransferase 9 units/L (7-56); Albumin 3.6 g/dL (3.9-5); Albumin/Globulin Ratio 1.1 %; Alkaline Phosphatase 132 units/L (35-129); Anion Gap 18 mmol/L; Blood Urea Nitrogen 9 mg/dL (7-17); Carbon Dioxide 23 mmol/L (22-30); Chloride 102.2 mmol/L (98-107); Glucose 97 mg/dL (65-100); Potassium 3.8 mmol/L (3.6-5.0); Sodium 139 mmol/L (137-145); Total Protein 6.8 g/dL (6.3-8.2)
[2016-12-30 10:39] LABS: Urine Drugs of Abuse Note Disclamer
[2016-12-30] MEDS ORDERED: LACTATED RINGERS 1,000 ML IV SCH ×2 (11:00→15:00)
[2016-12-30 11:10] LABS: Bilirubin,Urine NEG (Negative); Blood,Urine NEG (Negative); Ketones,Urine NEG (Negative); Leukocyte Esterase,Urine NEG (Negative); Nitrite,Urine NEG (Negative); Protein,Urine <15 mg/dL mg/dL (Negative); Urobilinogen,Urine < 2.0 mg/dL (<2.0)
--- NOTE | 2016-12-30 12:13 | Ultrasound Report ---
RIGHT UPPER QUADRANT ULTRASOUND: HISTORY: Nausea and vomiting, right upper quadrant pain. Technique: Transabdominal ultrasound imaging with Doppler interrogation. FINDINGS: The gallbladder is sonolucent with no evidence of stones, polyps or wall thickening. A 4 mm gallbladder polyp is noted in the posterior wall of gallbladder. The common duct is normal in caliber. Images of the liver parenchyma, pancreas, right kidney and aorta are within normal limits. No perihepatic ascites. IMPRESSION: Small gallbladder polyp. Otherwise, unremarkable exam of the right upper quadrant.
[2016-12-30] MEDS ORDERED: SUBLIMAZE IV ONE (12:45)
--- NOTE | 2016-12-30 12:52 | History and Physical Report ---
History of Present Illness Date of examination: 12/30/16 Date of admission: 12/30/16 07:51 Chief complaint: nausea and contractions History of present illness: Pt presents with nausea and vomiting. Pt states it started at 6am. She had improvement with zofran but continued to have pain. Initially stated that pain was upper abdomen outside of contractions but to provider after pain meds given states it is just with contractions. Gall bladder sono is unchanged from July 2016 when she had it done again due to pain. Pt admitted for iv hydration, treatment for emesis, and obs for contractions. Menstrual History Regularity: regular Menses every: 28 days Duration: 3 LMP: 04/04/2016 LMP reliability: definite LMP character: normal test type: urine test Date: 06/04/2016 BC at conception: none Planned ? no EDC Calculations LMP: 01/09/2017 EDC Confirmation: 01/09/2017 Gestational Age: 8 5/7 weeks Past History : 6 # 1 Delivery date: 03/13/2004 Weeks Gestation: 40 Delivery type: Anesthesia type: none Delivery location: [facility] Infant Sex: Male weight: 6-8 Name: Gisell Comments: at 6 week # 2 Delivery date: 04/12/2005 Weeks Gestation: ? labor: no Delivery type: Hours of labor: 7 Anesthesia type: epidural Delivery location: [facility] Infant Sex: Male weight: 7-8 Name: Payal # 3 Delivery date: 05/16/2008 Weeks Gestation: 39 labor: yes Delivery type: Hours of labor: 5 Anesthesia type: epidural Delivery location: [facility] Infant Sex: Female weight: 8-6 Name: Shabbei # 4 Delivery date: 2010 Delivery type: EAB # 5 Delivery date: 01/27/2013 Weeks Gestation: 41 labor: no Delivery type: Hours of labor: 12 Anesthesia type: epidural Delivery location: [facility] Infant Sex: Male weight: 8-15 Name: Kirk Comments: Induction Past Medical History: Negative Past Medical History Past Surgical History: D&C: (2010) Left hand Family History Summary: Other family member - Has No Family History of Ovarvian Cancer - Entered On: Other family member - Has No Family History of Colon Cancer - Entered On: 2016 Other family member - Has Family History of Hypertension - Entered On: 06/04/2016 Other family member - Has Family History of Diabetes - Entered On: 06/04/2016 Other family member - Has Family History Breast Cancer - Entered On: 06/04/2016 Social History: Patient is single unemployed Risk Factors: Smoked Tobacco Use: Current every day smoker Cigarettes: Yes -- 1/2 pack(s) per day, Year started: 2005 Counseled to quit/cut down: yes Drug use: yes Substance: marijuana Comments: daily HIV high-risk behavior: low risk Alcohol use: yes Drinks per day: social Past Medical History 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 Abnormal PAP: negative Uterine Anomaly: negative Social Hx: Patient is single unemployed Past History Past Medical History: other (depression) Past Surgical History: other (hand sx) Social history: other (+marijuana use) - Obstetrical History Expected Date of Delivery: 01/09/17 Actual Gestation: 38 Week(s) 4 Day(s) : 6 Para: 4 Number of Living Children: 4 Medications and Allergies Allergies Allergy/AdvReac Type Severity Reaction Status Date / Time amoxicillin Allergy Hives Verified 05/12/16 20:01 latex Allergy Hives Verified 05/12/16 20:01 Home Medications Medication Instructions Recorded Confirmed Last Taken Type Acetaminophen [Acetaminophen TAB] 500 mg PO Q6HR #30 tablet 05/12/16 11/21/16 02:35 Rx Pnv Cmb#21/Iron/Folic Acid 1 each PO DAILY #30 tablet 05/12/16 11/21/16 08:00 Rx [ Complete Caplet] Active Meds: Active Medications Lactated Ringer's (Lactated Ringers) 1,000 mls @ 125 mls/hr IV DIRECT DEANA Review of Systems All systems: negative - Vital Signs Vital signs: Vital Signs Pulse BP Pulse Ox 69 112/68 99 12/30/16 07:57 12/30/16 07:57 12/30/16 07:57 Temp Pulse Resp BP Pulse Ox 73 120/68 87 12/30/16 12:44 12/30/16 12:44 12/30/16 12:42 - Physical Exam Cardiovascular: Normal S1, Normal S2 Lungs: Positive: Clear to auscultation, Normal air movement Abdomen: Positive: normal appearance Genitourinary (Female): Positive: normal external genitalia, normal perenium Vulva: both: normal Vagina: Positive: normal moisture - Obstetrical FHR: category 1 Cervical Dilatation: 2 Cervical Effacement Percentage: 50 station: -3 Uterine Contraction Pattern: Irregular Uterine Tone Measurement Phase: Resting Results Result Diagrams: 12/30/16 08:20 12/30/16 08:20 Abnormal lab results 12/30/16 12/30/16 12/30/16 Range/Units 08:20 08:20 09:10 WBC 11.6 H (4.5-11.0) K/mm3 RBC 3.55 L (3.65-5.03) M/mm3 [place] % (Auto) 7.7 H (0.0-7.3) % [place] # 0.9 H (0.0-0.8) K/mm3 Seg Neutrophils % 73.7 H (40.0-70.0) % Seg Neutrophils # 8.6 H (1.8-7.7) K/mm3 Creatinine 0.4 L (0.7-1.2) mg/dL Alkaline Phosphatase 132 H (35-129) units/L Albumin 3.6 L (3.9-5) g/dL Urine pH 8.0 H (5.0-7.0) All other labs normal. Assessment and Plan - Patient Problems (1) 38 weeks gestation of Current Visit: Yes Status: Acute (2) Nausea and vomiting Current Visit: Yes Status: Acute Qualifiers: Vomiting type: V Vomiting Intractability: V Plan to address problem: -improving with meds -labs stable -admit for obs for now (3) Depression affecting Current Visit: No Status: Acute Plan to address problem: -not on any meds at this time -pt seen by psych previous admission. She did not f/u as instructed. No depression sx at this time. (4) Marijuana abuse Current Visit: No Status: Acute Plan to address problem: UDS (+) MJ -pt counseled several times in the office to d/c
[2016-12-30] MEDS ORDERED: MYLICON PO PRN (14:04)
[2016-12-30] MEDS ORDERED: ALUM-MAG HYDROX-SIMETH 200-200-20MG/5ML PO PRN (14:04)
[2016-12-30] MEDS ORDERED: AMBIEN PO PRN (14:04)
[2016-12-30] MEDS ORDERED: COLACE PO PRN (14:04)
[2016-12-30] MEDS ORDERED: ZOFRAN IV PRN (14:04)
[2016-12-30] MEDS ORDERED: TYLENOL PO PRN (14:04)
[2016-12-30] MEDS ORDERED: PEPCID IV SCH (15:00)
[2016-12-30] MEDS ORDERED: SUBLIMAZE IV PRN (16:06)
[2016-12-30] MEDS ORDERED: SUBLIMAZE ONE (16:12)
--- NOTE | 2016-12-30 19:50 | Event Note ---
Date: 12/30/16 Pt continues to have wretching with minimal emesis noted. Will make npo at this time. Pt was on clear diet with ice chips. Pt advised that at this time there no indication for IOL as delivery will not necessarily relieve the n/v. Numerous questions were addressed and answered. Pt advised of bowel rest at this time due to n/v. Will obtain amylase and lipase at this time.
[2016-12-30] MEDS: SUBLIMAZE IV PRN (20:13)
--- NOTE | 2016-12-30 20:13 | Event Note ---
Date: 12/30/16 Pt now states that she has nausea with the reflux. She states when she took meds at home for reflux she has the vomiting. Pt desires to eat but request relief for the heart burn. I d/w that I will change the meds for reflux and again start with ice chips and see how she tolerates it. Pt expressed understanding and agrees with plan of care.
[2016-12-30 20:53] VITALS: BP 108/51
[2016-12-30] MEDS ORDERED: PROTONIX IV SCH (22:00)
[2016-12-30 22:13] LABS: Amylase 85 units/L (27-131); Lipase 36 units/L (13-60)
[2016-12-31] MEDS: SUBLIMAZE IV PRN (00:06)
--- NOTE | 2016-12-31 01:18 | Event Note ---
Date: 12/31/16 Informed by RN that patient would like to sign out AMA. This is has occurred each time pt has been admitted. I advised that pt will need to sign the appropriate documents. She understands that that in doing so she assumes an risks to her or her unborn baby as she is leaving against medical advice.
[2016-12-31] MEDS ORDERED: PRENATAL VITAMIN PO SCH (10:00)
== END 2016-12-31 01:00 | disposition left against medical advice (07) ==
LOC: TRG 07:39 → LD 07:51 → TRG 07:51
PROVIDERS: ADMIT Obstetrics & Gynecology; ATTEND Obstetrics & Gynecology
DX: O21.2 Late vomiting of pregnancy (principal); O99.343 Other mental disorders complicating pregnancy, third trimester; F32.9 Major depressive disorder, single episode, unspecified; F12.10 Cannabis abuse, uncomplicated; Z3A.38 38 weeks gestation of pregnancy
CPT/HCPCS: 36415; 76705; 80053; 80307; 81001; 82150; 83690; 85025; 96361; 96374; 96375; 96376; 99406; G0378; J2405; J3010; J7120; C9113

== ENCOUNTER 2017-01-09 18:09 | Inpatient (IN) | payer MEDICAID ==
--- NOTE | 2017-01-09 18:33 | History and Physical Report ---
History of Present Illness Date of examination: 01/09/17 Date of admission: 01/09/17 18:10 History of present illness: Patient presented to labor and delivery with complaints of ruptured membranes at 1730 with the start of regular contractions. Initial exam patient centimeters with grossly ruptured membranes been admitted to labor and delivery. Menstrual History Regularity: regular Menses every: 28 days Duration: 3 LMP: 04/04/2016 LMP reliability: definite LMP character: normal test type: urine test Date: 06/04/2016 BC at conception: none Planned ? no EDC Calculations LMP: 01/09/2017 EDC Confirmation: 01/09/2017 Past History : 6 # 1 Delivery date: 03/13/2004 Weeks Gestation: 40 Delivery type: Anesthesia type: none Delivery location: [facility] Sex: Male weight: 6-8 Name: Gisell Comments: at 6 week # 2 Delivery date: 04/12/2005 Weeks Gestation: ? labor: no Delivery type: Hours of labor: 7 Anesthesia type: epidural Delivery location: [facility] Infant Sex: Male weight: 7-8 Name: Payal # 3 Delivery date: 05/16/2008 Weeks Gestation: 39 labor: yes Delivery type: Hours of labor: 5 Anesthesia type: epidural Delivery location: [facility] Infant Sex: Female weight: 8-6 Name: Parminderei # 4 Delivery date: 2010 Delivery type: EAB # 5 Delivery date: 01/27/2013 Weeks Gestation: 41 labor: no Delivery type: Hours of labor: 12 Anesthesia type: epidural Delivery location: [facility] Infant Sex: Male weight: 8-15 Name: Kirk Comments: Induction Past Medical History: Negative Past Medical History Past Surgical History: D&C: (2010) Left hand Family History Summary: Other family member - Has No Family History of Ovarvian Cancer - Entered On: Other family member - Has No Family History of Colon Cancer - Entered On: 2016 Other family member - Has Family History of Hypertension - Entered On: 06/04/2016 Other family member - Has Family History of Diabetes - Entered On: 06/04/2016 Other family member - Has Family History Breast Cancer - Entered On: 06/04/2016 Social History: Patient is single unemployed Risk Factors: Smoked Tobacco Use: Current every day smoker Cigarettes: Yes -- 2 pack(s) per day, Year started: 2005 Counseled to quit/cut down: yes Drug use: yes Substance: marijuana Comments: daily HIV high-risk behavior: low risk Alcohol use: yes Drinks per day: social Past Medical History 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 of genital herpes: no Partner hx. of genital herpes: no Genetic History Congenital Heart Defect: Mom: no Dad: no Marko Disease: Mom: no Dad: no Thalassemia Mom: no Dad: no Neural Tube Defect Mom: no Dad: no Down's Syndrome Mom: no Dad: no Taran-Sachs Mom: no Dad: no Sickle Cell Disease/Trait Mom: no Dad: no Hemophilia Mom: no Dad: no Muscular Dystrophy Mom: no Dad: no Cystic Fibrosis Mom: no Dad: no [place] Chorea Mom: no Dad: no Mental Retardation Mom: no Dad: no Fragile X Mom: no Dad: no Other Genetic/Chromosomal Disorder Mom: no Dad: no Child w/other defect Mom: no Dad: no Enviromental Exposures Xray Exposure: no Medication, drug, or alcohol use since LMP: no Chemical/Other Exposure: no Exposure to Cat Liter: no Hx of Parvovirus (Fifth Disease): no Current Allergies: AMOXICILLIN (AMOXICILLIN TABS) (Critical) Past History Past Surgical History: other (see HPI) 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 (see HPI) Family/Genetic History: other (see HPI) Social history: other (see HPI) - Obstetrical History Expected Date of Delivery: 01/09/17 Actual Gestation: 40 Week(s) 0 Day(s) : 6 Para: 4 Hx # Term Pregnancies: 4 Number of Pregnancies: 0 Spontaneous Abortions: 0 Induced : 1 Number of Living Children: 4 Medications and Allergies Allergies Allergy/AdvReac Type Severity Reaction Status Date / Time amoxicillin Allergy Hives Verified 05/12/16 20:01 latex Allergy Hives Verified 05/12/16 20:01 Home Medications Medication Instructions Recorded Confirmed Last Taken Type Acetaminophen [Acetaminophen TAB] 500 mg PO Q6HR #30 tablet 05/12/16 11/21/16 02:35 Rx Pnv Cmb#21/Iron/Folic Acid 1 each PO DAILY #30 tablet 05/12/16 11/21/16 08:00 Rx [ Complete Caplet] - Physical Exam Breasts: Positive: deferred Cardiovascular: Regular rate Lungs: Positive: Normal air movement Abdomen: Positive: normal appearance, soft Extremities: Positive: normal - Obstetrical FHR: category 1 Results Result Diagrams: 01/09/17 18:48 All other labs normal. Assessment and Plan - Patient Problems (1) Rupture of membranes with meconium present Current Visit: Yes Status: Acute Plan to address problem: Admit follow labor protocol NICU at delivery (2) 40 weeks gestation of Current Visit: Yes Status: Acute (3) Depression affecting Current Visit: No Status: Acute (4) Marijuana abuse Current Visit: No Status: Acute Plan to address problem: Urine drug screen Social service consult
[2017-01-09] MEDS ORDERED: MINERAL OIL PO PRN (18:34)
[2017-01-09] MEDS ORDERED: STADOL IV PRN (18:34)
[2017-01-09] MEDS ORDERED: PHENERGAN PO PRN ×2 (18:34→22:09)
[2017-01-09] MEDS ORDERED: ePHEDrine SULFATE IV PRN (18:34)
[2017-01-09] MEDS ORDERED: BRETHINE IVP PRN (18:51)
[2017-01-09] MEDS ORDERED: BRETHINE SUB-Q PRN (18:51)
[2017-01-09] MEDS ORDERED: SUBLIMAZE ONE (19:03)
[2017-01-09] MEDS ORDERED: NARCAN 2 MG/2 ML ONE (19:04)
[2017-01-09] MEDS ORDERED: LACTATED RINGERS 1,000 ML ONE (19:04)
[2017-01-09 19:12] LABS: Hematocrit 34.6 % (30.3-42.9); Hemoglobin 11.3 gm/dl (10.1-14.3); Mean Corpuscular HGB Conc 33 % (30-34); Mean Corpuscular Hemoglobin 31 pg (28-32); Mean Corpuscular Volume 94 fl (79-97); Platelet Count 228 K/mm3 (140-440); Red Blood Count 3.69 M/mm3 (3.65-5.03); White Blood Count 16.2 K/mm3 (4.5-11.0)
--- NOTE | 2017-01-09 19:41 | Procedure Note ---
OB Delivery Note - Delivery Date of Delivery: 01/09/17 Surgeon: ARIE LUND Estimated blood loss: 300cc - Vaginal Delivery position: OA Intrapartum events: PROM->1hr before delivery Delivery induction: none Delivery monitor: external FHT, external uterine Route of delivery: Delivery placenta: spontaneous Episiotomy: none Anesthesia: none - Infant A at 1 minute: 8 at 5 minutes: 9 Gender: Female
[2017-01-09] MEDS ORDERED: LACTATED RINGERS 1,000 ML IV SCH (20:00)
[2017-01-09] MEDS ORDERED: XYLOCAINE 2% INFILTRATI ONE (20:00)
[2017-01-09] MEDS ORDERED: PITOCin/NS 20 UNIT/1000ML DRIP 20 UNITS/1,000 ML BAG IV SCH (20:00)
[2017-01-09] MEDS ORDERED: CLEOCIN 600 MG/50 mL 600 MG/50 ML BAG IV SCH (20:00)
[2017-01-09] MEDS: MOTRIN PO SCH (20:10)
[2017-01-09] MEDS ORDERED: MOTRIN PO ONE (20:41)
[2017-01-09] MEDS ORDERED: TYLENOL PO PRN (22:09)
[2017-01-09] MEDS ORDERED: TUCKS PAD TP PRN (22:09)
[2017-01-09] MEDS ORDERED: MOTRIN PO SCH (22:09)
[2017-01-09] MEDS ORDERED: MILK OF MAGNESIA PO PRN (22:09)
[2017-01-09] MEDS ORDERED: SODIUM CHLORIDE FLUSH SYRINGE 10 ML IV PRN (22:09)
[2017-01-09] MEDS ORDERED: BENADRYL PO PRN (22:09)
[2017-01-09] MEDS ORDERED: DULCOLAX PR PRN (22:09)
[2017-01-09] MEDS ORDERED: LANSINOH TP PRN (22:09)
[2017-01-09] MEDS: NORCO 5/325 PO PRN (22:27)
[2017-01-09] MEDS ORDERED: DERMOPLAST TP PRN (22:58)
[2017-01-09 23:59] LABS: Urine Drugs of Abuse Note Disclamer
[2017-01-10] MEDS: NORCO 5/325 PO PRN ×3 (02:32→20:52)
[2017-01-10 06:39] LABS: Hematocrit 30.5 % (30.3-42.9); Hemoglobin 10.4 gm/dl (10.1-14.3)
--- NOTE | 2017-01-10 08:18 | Progress Note ---
Assessment and Plan Patient doing well, no complaints. Karla sousa, GENARO, H&H 10.4/30.5. Plan for d/c home tomorrow once infant has been cleared by peds. routine f/u in office. - Patient Problems (1) (normal spontaneous vaginal delivery) Current Visit: Yes Status: Acute Subjective - Subjective Date of service: 01/10/17 Principal diagnosis: day #1 s/p Patient reports: appetite normal, voiding normally, pain well controlled, ambulating normally, no dizzy ambulation, no nauseated [place]: doing well, nursing well Objective - Vital Signs Latest vital signs: Vital Signs Temp Pulse Resp BP 01/10/17 06:30 18 01/10/17 04:30 98.1 F 62 18 116/53 01/10/17 02:33 18 01/10/17 02:32 18 01/09/17 22:00 98.5 F 76 18 112/64 01/09/17 21:14 81 113/68 01/09/17 21:02 78 107/57 01/09/17 20:55 98.2 F 81 18 113/68 01/09/17 20:44 86 122/67 01/09/17 20:33 90 117/64 01/09/17 20:14 83 111/73 01/09/17 19:59 75 118/74 01/09/17 19:44 78 115/72 01/09/17 19:32 78 116/68 Intake and Output 01/09/17 01/10/17 01/10/17 22:59 06:59 14:59 Intake Total 240 Output Total 300 Balance -60 Intake: Oral 240 Output: Urine 300 Void 300 Other: Total, Intake Amount 240 Total, Output Amount 300 Weight 64.41 kg Estimated Blood Loss 300 - Exam Breasts: Present: normal, Cardiovascular: Present: Regular rate Lungs: Present: Clear to auscultation, Normal air movement Abdomen: Present: normal appearance, soft Vulva: both: normal Uterus: Present: normal, firm, fundal height at umbilicus Extremities: Present: normal - Labs Labs: Abnormal lab results 01/09/17 Range/Units 18:48 WBC 16.2 H (4.5-11.0) K/mm3
--- NOTE | 2017-01-10 08:21 | Discharge Summary ---
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 Comment:: Mother with drug use during Consult to Roving Can Tender [CONS] Routine Reason For Exam: assistance with , SNS Primary care physician: ARIE LUND Hospitalization Reason for admission: active labor Delivery: Episiotomy: none Laceration: none Other procedures: none complications: none Discharge diagnosis: IUP at term delivered baby: female Hospital course: uncomplicated vaginal Condition at discharge: Good Disposition: DC-01 TO HOME OR SELFCARE - Discharge Diagnoses (1) (normal spontaneous vaginal delivery) Status: Acute Plan - Discharge Medications Prescriptions: Ibuprofen [Motrin 800 MG tab] 800 mg PO Q8HR PRN #30 tablet PRN Reason: Pain - Provider Discharge Summary Activity: routine, no sex for 6 weeks, no heavy lifting 4 weeks, no strenuous exercise Diet: routine Instructions: routine Additional instructions: [] Smoking cessation referral if applicable(refer to patient education folder for contact #) [] Refer to [facility] Booklet Call your doctor immediately for: * Fever > 100.5 * Heavy vaginal bleeding ( >1 pad per hour) * Severe persistent headache * Shortness of breath * Reddened, hot, painful area to leg or breast * Drainage or odor from incision. * Keep incision clean and dry at all times and follow doctor's instructions regarding bathing/showering - Follow up plan Follow up: ARIE LUND MD [Primary Care Provider] - 02/10/17 (Congratulations! Please call [phone] to schedule your visit in 4 weeks. Call for any questions or concerns.)
[2017-01-10] MEDS ORDERED: PRENATAL VITAMIN PO SCH (10:00)
[2017-01-10] MEDS: COLACE PO SCH ×2 (12:19→22:00)
[2017-01-10] MEDS: MOTRIN PO SCH ×2 (14:30→20:00)
[2017-01-11] MEDS: MOTRIN PO SCH ×3 (01:52→14:00)
[2017-01-11] MEDS: NORCO 5/325 PO PRN (01:52)
[2017-01-11 13:32] VITALS: BP 115/81
== END 2017-01-11 19:15 | disposition home or self-care (01) | DRG 775 ==
LOC: TRG 18:09 → LD 18:10 → OB 21:43
PROVIDERS: ADMIT Obstetrics & Gynecology; ATTEND Obstetrics & Gynecology
PROC: 10E0XZZ Delivery of Products of Conception, External Approach (ICD-10-PCS; principal; 2017-01-09)
DX: O99.344 Other mental disorders complicating childbirth (principal); O77.0 Labor and delivery complicated by meconium in amniotic fluid; F32.9 Major depressive disorder, single episode, unspecified; O42.02 Full-term premature rupture of membranes, onset of labor within 24 hours of rupture; O99.324 Drug use complicating childbirth; F12.10 Cannabis abuse, uncomplicated; Z37.0 Single live birth; Z3A.40 40 weeks gestation of pregnancy; Z91.040 Latex allergy status; Z88.8 Allergy status to other drugs, medicaments and biological substances
CPT/HCPCS: 36415; 80307; 85014; 85018; 85027; 86850; 86900; 86901; 99211; A6250; G0463; J2310; J2590; J3010; J7120; Q0169

== ENCOUNTER 2018-12-25 21:29 | Emergency (ER) | payer SELFPAY ==
[2018-12-25 23:02] LABS: Hemoglobin 14.9 gm/dl (10.1-14.3); Mean Corpuscular HGB Conc 35 % (30-34); Mean Corpuscular Volume 96 fl (79-97); Platelet Count 168 K/mm3 (140-440); Red Blood Count 4.47 M/mm3 (3.65-5.03); Red Cell Distribution Width 14.5 % (13.2-15.2)
[2018-12-25 23:21] LABS: Alanine Aminotransferase 9 units/L (7-56); Albumin 4.6 g/dL (3.9-5); BUN/Creatinine Ratio 16; Blood Urea Nitrogen 11 mg/dL (7-17); Calcium 9.1 mg/dL (8.4-10.2); Hemolysis Index 14
[2018-12-25 23:57] LABS: Basophils % (Manual) 0 % (0.0-1.8); Eosinophils % (Manual) 0 % (0.0-4.3); Total Cells Counted 100
[2018-12-25 23:58] LABS: Anisocytosis Few
[2018-12-25 23:59] LABS: Platelet Estimate Consistent w Auto
[2018-12-26 01:35] LABS: HCG Qualitative,Urine Negative (Negative)
[2018-12-26 01:40] LABS: Bilirubin,Urine NEG (Negative); Blood,Urine SM (Negative); Color,Urine Amber (Yellow); Mucus,Urine 3+ /HPF
--- NOTE | 2018-12-26 01:41 | Emergency Department Report ---
ED Female HPI - General Chief complaint: Abdominal Pain Stated complaint: HEADACHE, BACK AND ABDOMINAL PAIN Time Seen by Provider: 12/26/18 00:36 Source: patient Mode of arrival: Ambulatory Limitations: No Limitations - History of Present Illness Initial comments: Patient is a 33-year-old female presents to the emergency room with complaints of suprapubic abdominal pain that began 4 days ago. She has associated back pain, dysuria, generalized body aches, nausea. She denies any fever, vomiting, diarrhea. she denies any vaginal discharge, vaginal odor, or vaginal complaints. She denies any past medical history. She states her last mental cycle was December 07. States she has an allergy to amoxicillin. - Related Data Previous Rx's Medication Instructions Recorded Last Taken Type Acetaminophen [Acetaminophen TAB] 500 mg PO Q6HR #30 tablet 05/12/16 11/21/16 02:35 Rx 21/Iron Fu/Folic Acid 1 each PO DAILY #30 tablet 05/12/16 11/20/16 08:00 Rx [ Complete Caplet] Ibuprofen [Motrin 800 MG tab] 800 mg PO Q8HR PRN #30 tablet 01/10/17 Unknown Rx Allergies Allergy/AdvReac Type Severity Reaction Status Date / Time amoxicillin Allergy Hives Verified 05/12/16 20:01 latex Allergy Hives Verified 05/12/16 20:01 ED Review of Systems ROS: Stated complaint: HEADACHE, BACK AND ABDOMINAL PAIN Other details as noted in HPI Comment: All other systems reviewed and negative ED Past Medical Hx - Past Medical History Previous Medical History?: No Hx Hypertension: No Hx Congestive Heart Failure: No Hx Diabetes: No Hx Deep Vein Thrombosis: No Hx Renal Disease: No Hx Sickle Cell Disease: No Hx Seizures: No Hx Asthma: No Hx COPD: No Hx HIV: No Additional medical history: Ulcers - Surgical History Past Surgical History?: No Additional Surgical History: Left hand. Left Shoulder rotator cuff repair - Social History Smoking Status: Current Every Day Smoker Substance Use Type: None - Medications Home Medications: Home Medications Medication Instructions Recorded Confirmed Last Taken Type Acetaminophen [Acetaminophen TAB] 500 mg PO Q6HR #30 tablet 05/12/16 01/09/17 11/21/16 02:35 Rx 21/Iron Fu/Folic Acid 1 each PO DAILY #30 tablet 05/12/16 01/09/17 11/20/16 08:00 Rx [ Complete Caplet] Ibuprofen [Motrin 800 MG tab] 800 mg PO Q8HR PRN #30 tablet 01/10/17 Unknown Rx ED Physical Exam - General Limitations: No Limitations General appearance: alert, in no apparent distress - Head Head exam: Present: atraumatic, normocephalic - Eye Eye exam: Present: normal appearance - ENT ENT exam: Present: mucous membranes moist - Respiratory Respiratory exam: Present: normal lung sounds bilaterally. Absent: respiratory distress, wheezes, rales, rhonchi, stridor, accessory muscle use, decreased breath sounds, prolonged expiratory - Cardiovascular Cardiovascular Exam: Present: regular rate, normal rhythm, normal heart sounds. Absent: systolic murmur, diastolic murmur, rubs, gallop - GI/Abdominal GI/Abdominal exam: Present: soft, normal bowel sounds. Absent: distended, tenderness, guarding, rebound, rigid - Speculum exam: Present: other (pt defered ) - Back Exam Back exam: Absent: CVA tenderness (R), CVA tenderness (L) - Neurological Exam Neurological exam: Present: alert, oriented X3 - Psychiatric Psychiatric exam: Present: normal affect, normal mood - Skin Skin exam: Present: warm, dry, intact ED Course Vital Signs 12/25/18 12/26/18 21:46 04:56 Temperature 99.2 F 98 F Pulse Rate 87 78 Respiratory 18 16 Rate Blood Pressure 124/82 Blood Pressure 116/78 [Left] O2 Sat by Pulse 98 100 Oximetry ED Medical Decision Making - Lab Data Result diagrams: 12/25/18 22:29 12/25/18 22:29 Lab Results 12/25/18 12/25/18 12/26/18 Range/Units 22:29 22:29 00:58 WBC 6.2 (4.5-11.0) K/mm3 RBC 4.47 (3.65-5.03) M/mm3 Hgb 14.9 H (10.1-14.3) gm/dl Hct 43.0 H (30.3-42.9) % MCV 96 (79-97) fl MCH 33 H (28-32) pg MCHC 35 H (30-34) % RDW 14.5 (13.2-15.2) % Plt Count 168 (140-440) K/mm3 Moore % (Auto) Instrument Tech Add Manual Diff Complete Total Counted 100 Seg Neuts % (Manual) 65.0 (40.0-70.0) % Band Neutrophils % 0 % Lymphocytes % (Manual) 24.0 (13.4-35.0) % Reactive Lymphs % (Man) 0 % Monocytes % (Manual) 11.0 H (0.0-7.3) % Eosinophils % (Manual) 0 (0.0-4.3) % Basophils % (Manual) 0 (0.0-1.8) % Metamyelocytes % 0 % Myelocytes % 0 % Promyelocytes % 0 % Blast Cells % 0 % Nucleated RBC % Not Reportable Seg Neutrophils # Man 4.0 (1.8-7.7) K/mm3 Band Neutrophils # 0.0 K/mm3 Lymphocytes # (Manual) 1.5 (1.2-5.4) K/mm3 Abs React Lymphs (Man) 0.0 K/mm3 Monocytes # (Manual) 0.7 (0.0-0.8) K/mm3 Eosinophils # (Manual) 0.0 (0.0-0.4) K/mm3 Basophils # (Manual) 0.0 (0.0-0.1) K/mm3 Metamyelocytes # 0.0 K/mm3 Myelocytes # 0.0 K/mm3 Promyelocytes # 0.0 K/mm3 Blast Cells # 0.0 K/mm3 WBC Morphology Not Reportable Hypersegmented Neuts Not Reportable Hyposegmented Neuts Not Reportable Hypogranular Neuts Not Reportable Smudge Cells Not Reportable Toxic Granulation Not Reportable Toxic Vacuolation Not Reportable Dohle Bodies Not Reportable Pelger-Huet Anomaly Not Reportable Shabbir Rods Not Reportable Platelet Estimate Consistent w auto Clumped Platelets Not Reportable Plt Clumps, EDTA Not Reportable Large Platelets Not Reportable Giant Platelets Not Reportable Platelet Satelliting Not Reportable Plt Morphology Comment Giant platelets RBC Morphology Not Reportable Dimorphic RBCs Not Reportable Polychromasia Not Reportable Hypochromasia Not Reportable Poikilocytosis Not Reportable Anisocytosis Few Microcytosis Not Reportable Macrocytosis Not Reportable Spherocytes Not Reportable Pappenheimer Bodies Not Reportable Sickle Cells Not Reportable Target Cells Not Reportable Tear Drop Cells Not Reportable Ovalocytes Not Reportable Helmet Cells Not Reportable [place] Bodies Not Reportable [place] Rings Not Reportable [place] Cells Not Reportable Bite Cells Not Reportable Crenated Cell Not Reportable Elliptocytes Not Reportable Acanthocytes (Spur) Not Reportable Rouleaux Not Reportable Hemoglobin C Crystals Not Reportable Schistocytes Not Reportable Malaria parasites Not Reportable Marciano Bodies Not Reportable Hem Pathologist Commnt No Sodium 138 (137-145) mmol/L Potassium 3.4 L (3.6-5.0) mmol/L Chloride 101.2 (98-107) mmol/L Carbon Dioxide 24 (22-30) mmol/L Anion Gap 16 mmol/L BUN 11 (7-17) mg/dL Creatinine 0.7 (0.7-1.2) mg/dL Estimated GFR > 60 ml/min BUN/Creatinine Ratio 16 % Glucose 86 (65-100) mg/dL Calcium 9.1 (8.4-10.2) mg/dL Total Bilirubin 0.20 (0.1-1.2) mg/dL AST 20 (5-40) units/L ALT 9 (7-56) units/L Alkaline Phosphatase 67 (35-129) units/L Total Protein 7.7 (6.3-8.2) g/dL Albumin 4.6 (3.9-5) g/dL Albumin/Globulin Ratio 1.5 % Urine Color Nicole (Yellow) Urine Turbidity Slightly-cloudy (Clear) Urine pH 5.0 (5.0-7.0) Ur Specific [place] 1.035 H (1.003-1.030) Urine Protein 30 mg/dl (Negative) mg/dL Urine Glucose (UA) Neg (Negative) mg/dL Urine Ketones Tr (Negative) mg/dL Urine Blood Sm (Negative) Urine Nitrite Neg (Negative) Urine Bilirubin Neg (Negative) Urine Urobilinogen 2.0 (<2.0) mg/dL Ur Leukocyte Esterase Neg (Negative) Urine WBC (Auto) 3.0 (0.0-6.0) /HPF Urine RBC (Auto) 5.0 (0.0-6.0) /HPF U Epithel Cells (Auto) 10.0 (0-13.0) /HPF Urine Mucus 3+ /HPF Urine HCG, Qual (Negative) 12/26/18 Range/Units Unknown WBC (4.5-11.0) K/mm3 RBC (3.65-5.03) M/mm3 Hgb (10.1-14.3) gm/dl Hct (30.3-42.9) % MCV (79-97) fl MCH (28-32) pg MCHC (30-34) % RDW (13.2-15.2) % Plt Count (140-440) K/mm3 Moore % (Auto) Add Manual Diff Total Counted Seg Neuts % (Manual) (40.0-70.0) % Band Neutrophils % % Lymphocytes % (Manual) (13.4-35.0) % Reactive Lymphs % (Man) % Monocytes % (Manual) (0.0-7.3) % Eosinophils % (Manual) (0.0-4.3) % Basophils % (Manual) (0.0-1.8) % Metamyelocytes % % Myelocytes % % Promyelocytes % % Blast Cells % % Nucleated RBC % Seg Neutrophils # Man (1.8-7.7) K/mm3 Band Neutrophils # K/mm3 Lymphocytes # (Manual) (1.2-5.4) K/mm3 Abs React Lymphs (Man) K/mm3 Monocytes # (Manual) (0.0-0.8) K/mm3 Eosinophils # (Manual) (0.0-0.4) K/mm3 Basophils # (Manual) (0.0-0.1) K/mm3 Metamyelocytes # K/mm3 Myelocytes # K/mm3 Promyelocytes # K/mm3 Blast Cells # K/mm3 WBC Morphology Hypersegmented Neuts Hyposegmented Neuts Hypogranular Neuts Smudge Cells Toxic Granulation Toxic Vacuolation Dohle Bodies Pelger-Huet Anomaly Shabbir Rods Platelet Estimate Clumped Platelets Plt Clumps, EDTA Large Platelets Giant Platelets Platelet Satelliting Plt Morphology Comment RBC Morphology Dimorphic RBCs Polychromasia Hypochromasia Poikilocytosis Anisocytosis Microcytosis Macrocytosis Spherocytes Pappenheimer Bodies Sickle Cells Target Cells Tear Drop Cells Ovalocytes Helmet Cells R[place] Bodies [place] Rings [place] Cells Bite Cells Crenated Cell Elliptocytes Acanthocytes (Spur) Rouleaux Hemoglobin C Crystals Schistocytes Malaria parasites Marciano Bodies Hem Pathologist Commnt Sodium (137-145) mmol/L Potassium (3.6-5.0) mmol/L Chloride (98-107) mmol/L Carbon Dioxide (22-30) mmol/L Anion Gap mmol/L BUN (7-17) mg/dL Creatinine (0.7-1.2) mg/dL Estimated GFR ml/min BUN/Creatinine Ratio % Glucose (65-100) mg/dL Calcium (8.4-10.2) mg/dL Total Bilirubin (0.1-1.2) mg/dL AST (5-40) units/L ALT (7-56) units/L Alkaline Phosphatase (35-129) units/L Total Protein (6.3-8.2) g/dL Albumin (3.9-5) g/dL Albumin/Globulin Ratio % Urine Color (Yellow) Urine Turbidity (Clear) Urine pH (5.0-7.0) Ur Specific [place] (1.003-1.030) Urine Protein (Negative) mg/dL Urine Glucose (UA) (Negative) mg/dL Urine Ketones (Negative) mg/dL Urine Blood (Negative) Urine Nitrite (Negative) Urine Bilirubin (Negative) Urine Urobilinogen (<2.0) mg/dL Ur Leukocyte Esterase (Negative) Urine WBC (Auto) (0.0-6.0) /HPF Urine RBC (Auto) (0.0-6.0) /HPF U Epithel Cells (Auto) (0-13.0) /HPF Urine Mucus /HPF Urine HCG, Qual Negative (Negative) - Medical Decision Making Patient is a 33-year-old female presents to the emergency room with complaints of suprapubic abdominal pain that began 4 days ago. She has associated back pain, dysuria, generalized body aches, nausea. She denies any fever, vomiting, diarrhea. she denies any vaginal discharge, vaginal odor, or vaginal complaints. She denies any past medical history. She states her last mental cycle was December 07. States she has an allergy to amoxicillin. vitals are normal. no abd tenderness or CVAT on exam. labs WNL. UA without evidence of UTI. urine preg is negative. pt given 1L of fluids and zofran. pt states she is feeling much better, she states she believes she got dehydrated at work while working in the sun. advised to drink plenty of fluids. discussed with pt to follow up with a primary care doctor and [facility] in the next 2-3 days. return to the emergency room for any new or worsening symptoms or if symptoms not improving. Critical care attestation.: If time is entered above; I have spent that time in minutes in the direct care of this critically ill patient, excluding procedure time. ED Disposition Clinical Impression: Suprapubic abdominal pain, Generalized body aches, Nausea, Dysuria Disposition: TO HOME OR SELFCARE Is pt being admited?: No Does the pt Need Aspirin: No Condition: Stable Instructions: Dysuria (ED), Abdominal Pain (ED) Additional Instructions: please drink plenty of fluids. Follow up with a primary care doctor and [facility] in the next 2-3 days. return to the emergency room for any new or worsening symptoms or if symptoms not improving. Referrals: SABRINA HUANG MD [Primary Care Provider] - 2-3 Days [facility] [Provider [facility]] - 2-3 Days CONNOR ZHAO MD [Staff Physician] - 2-3 Days Time of Disposition: 03:32 Print Language: [id number]
[2018-12-26] MEDS ORDERED: ZOFRAN IV ONE (02:01)
[2018-12-26] MEDS ORDERED: NACL 0.9% 1000 ML 1,000 ML IV ONE (02:01)
[2018-12-26 04:58] VITALS: BP 116/78
== END 2018-12-26 05:01 | disposition home or self-care (01) ==
LOC: ED 21:29
DX: M79.10 Myalgia, unspecified site (principal); R30.0 Dysuria; R11.0 Nausea
CPT/HCPCS: 36415; 80053; 81001; 81025; 85007; 85025; J2405; J7030; 96374

== ENCOUNTER 2020-12-07 12:11 | Emergency (ER) | payer MEDICAID | END 2020-12-07 13:23 | disposition left against medical advice (07) | LOC: ED 12:11 | DX: Z01.84 Encounter for antibody response examination (principal); Z53.21 Procedure and treatment not carried out due to patient leaving prior to being seen by health care provider ==